=== PATIENT | female | born 1975 | race Caucasian/White ===

== ENCOUNTER 2017-04-13 06:20 | Emergency (ER) | payer MEDICAID ==
--- NOTE | 2017-04-13 07:24 | EDM.PDOC ---
ED HPI GENERAL MEDICAL PROBLEM - General Stated Complaint: MEDICAL VIA NORTH Time Seen by Provider: 04/13/17 07:10 Source of Information: Reports: Patient, EMS - History of Present Illness INITIAL COMMENTS - FREE TEXT/NARRATIVE: 41-year-old female brought in by ambulance in an acutely anxious state thinking she is dehydrated, septic, and several other complaints that are really not realistic. She is on several psychiatric medications, her alprazolam and Vyvanse both appear to be empty despite being 1 week to 2 weeks before they were supposed to be gone. She has some superficial abrasions on her face. Onset: Unknown/Unsure Severity: Mild Associated Symptoms: Reports: Loss of Appetite, Malaise. Denies: Fever/Chills, Nausea/Vomiting, Shortness of Breath Feet Pain Score (Numeric/FACES): 6 - Related Data Allergies Allergy/AdvReac Type Severity Reaction Status Date / Time Penicillins Allergy Hives Verified 04/13/17 07:25 Home Meds: Home Meds LORazepam 1.5 tab PO TID PRN 12/23/14 [History] Temazepam 30 mg PO BEDTIME PRN 12/23/14 [History] tiZANidine [Zanaflex] 4 mg PO QID PRN 02/24/15 [History] Gabapentin [Neurontin] 1 tab PO TID 04/13/17 [History] Lisdexamfetamine [Vyvanse] 1 cap PO DAILY 04/13/17 [History] Lurasidone HCl [Latuda] 20 mg PO DAILY 04/13/17 [History] Melatonin/Pyridoxine HCl (B6) [Melatonin 3 mg Tablet] 1 tab PO ASDIRECTED [History] Naproxen 1 tab PO BID 04/13/17 [History] Aime/Polymyx B Sulf/Dexameth [Euedep-Ordve-Axpzawkp Eye Drop] 1 drop EYEBOTH ASDIRECTED 04/13/17 [History] SUMAtriptan [Imitrex] 1 tab PO ASDIRECTED 04/13/17 [History] Vilazodone [Viibryd] 1 tab PO DAILY 04/13/17 [History] metroNIDAZOLE [Metronidazole] 1 tab PO BID 04/13/17 [History] Past Medical History HEENT History: Reports: Impaired Vision Respiratory History: Reports: Asthma, Bronchitis, Recurrent, Pneumonia, Recurrent Gastrointestinal History: Reports: Chronic Diarrhea, Irritable Bowel Syndrome 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: 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 OB/BYN History: states had "internal and external" ultrasound 2 months ago , found thickening of uterine wall Musculoskeletal History: Reports: Arthritis, Back Pain, Chronic, Fibromyalgia Neurological History: Reports: Migraines Psychiatric History: Reports: Anxiety, Bipolar, Depression, Psych Hospitalization(s), Suicide Attempt Endocrine/Metabolic History: Reports: Obesity/BMI 30+ - Infectious Disease History Infectious Disease History: Reports: Chicken Pox - Past Surgical History Respiratory Surgical History: Reports: Other (See Below) Female Surgical History: Reports: Section, Other (See Below) Social & Family History - Tobacco Use Smoking Status *Q: Light Tobacco Smoker Years of Tobacco use: 25 Packs/Tins Daily: 0.5 Used Tobacco, but Quit: No Month Tobacco Last Used: october Second Hand Smoke Exposure: Yes - Alcohol Use Days Per Week of Alcohol Use: 1 Number of Drinks Per Day: 2 Total Drinks Per Week: 2 - Recreational Drug Use Recreational Drug Use: No Drug Use in Last 12 Months: Yes Recreational Drug Type: Reports: Marijuana/Hashish Recreational Drug Use Frequency: Monthly Recreational Drug Last Use: 1 week - Living Situation & Occupation Living situation: Reports: Single Occupation: Employed ED ROS GENERAL - Review of Systems Review Of Systems: See Below Constitutional: Reports: Malaise. Denies: Fever, Chills Respiratory: Denies: Shortness of Breath Cardiovascular: Denies: Chest Pain GI/Abdominal: Reports: Decreased Appetite, Nausea : Reports: No Symptoms Musculoskeletal: Reports: Other (Complains of toe pain) Skin: Reports: Other (Superficial excoriations and abrasions on her face) ED EXAM, GENERAL - Physical Exam Exam: See Below Exam Limited By: No Limitations General Appearance: Alert, Anxious Eye Exam: Bilateral Eye: Normal Inspection Respiratory/Chest: No Respiratory Distress, Lungs Clear Cardiovascular: Regular Rate, Rhythm GI/Abdominal: Non-Tender Extremities: Other (Exam of the lower extremities is normal including the feet) Neurological: Alert Psychiatric: Anxious Skin Exam: Warm, Dry, Other (Patient does have several superficial erythematous abrasions on the forehead and face) Course - Vital Signs Last Recorded V/S: Last Vital Signs Temp 98.2 F 04/13/17 07:00 Pulse 66 04/13/17 07:30 Resp 16 04/13/17 07:30 BP 138/87 04/13/17 07:30 Pulse Ox 96 04/13/17 07:30 - Orders/Labs/Meds Labs: Laboratory Tests 04/13/17 04/13/17 04/13/17 Range/Units 07:35 07:35 08:04 WBC 8.3 (4.5-11.0) K/uL RBC 4.23 (3.30-5.50) M/uL Hgb 12.5 (12.0-15.0) g/dL Hct 38.2 (36.0-48.0) % MCV 90 (80-98) fL MCH 30 (27-31) pg MCHC 33 (32-36) % Plt Count 281 (150-400) K/uL Neut % (Auto) 63 (36-66) % Lymph % (Auto) 26 (24-44) % Brantley % (Auto) 7 H (2-6) % Eos % (Auto) 4 (2-4) % Baso % (Auto) 0 (0-1) % Sodium 145 (140-148) mmol/L Potassium 3.4 L (3.6-5.2) mmol/L Chloride 110 H (100-108) mmol/L Carbon Dioxide 26 (21-32) mmol/L Anion Gap 12.4 (5.0-14.0) mmol/L BUN 11 (7-18) mg/dL Creatinine 0.7 (0.6-1.0) mg/dL Est Cr Clr Drug Dosing 97.01 mL/min Estimated GFR (MDRD) > 60 (>60) Glucose 94 (74-106) mg/dL Calcium 8.1 L (8.5-10.1) mg/dL Urine Color Urine Appearance Urine pH (4.5-8.0) Ur Specific Felton (1.008-1.030) Urine Protein (NEGATIVE) mg/dL Urine Glucose (UA) (NEGATIVE) mg/dL Urine Ketones (NEGATIVE) mg/dL Urine Occult Blood (NEGATIVE) Urine Nitrite (NEGATIVE) Urine Bilirubin (NEGATIVE) Urine Urobilinogen (NORMAL) mg/dL Ur Leukocyte Esterase (NEGATIVE) Urine RBC (0-5) Urine WBC (0-5) Ur Epithelial Cells Amorphous Sediment Urine Bacteria Urine Mucus Urine Opiates Screen Negative (NEGATIVE) Ur Oxycodone Screen Negative (NEGATIVE) Urine Methadone Screen Negative (NEGATIVE) Ur Propoxyphene Screen Negative (NEGATIVE) Ur Barbiturates Screen Negative (NEGATIVE) Ur Tricyclics Screen Negative (NEGATIVE) Ur Phencyclidine Scrn Negative (NEGATIVE) Ur Amphetamine Screen Positive H (NEGATIVE) U Methamphetamines Scrn Negative (NEGATIVE) Urine MDMA Screen Negative (NEGATIVE) U Benzodiazepines Scrn Positive H (NEGATIVE) U Cocaine Metab Screen Negative (NEGATIVE) U Marijuana (THC) Screen Negative (NEGATIVE) 04/13/17 Range/Units 08:04 WBC (4.5-11.0) K/uL RBC (3.30-5.50) M/uL Hgb (12.0-15.0) g/dL Hct (36.0-48.0) % MCV (80-98) fL MCH (27-31) pg MCHC (32-36) % Plt Count (150-400) K/uL Neut % (Auto) (36-66) % Lymph % (Auto) (24-44) % Brantley % (Auto) (2-6) % Eos % (Auto) (2-4) % Baso % (Auto) (0-1) % Sodium (140-148) mmol/L Potassium (3.6-5.2) mmol/L Chloride (100-108) mmol/L Carbon Dioxide (21-32) mmol/L Anion Gap (5.0-14.0) mmol/L BUN (7-18) mg/dL Creatinine (0.6-1.0) mg/dL Est Cr Clr Drug Dosing mL/min Estimated GFR (MDRD) (>60) Glucose (74-106) mg/dL Calcium (8.5-10.1) mg/dL Urine Color Yellow Urine Appearance Clear Urine pH 7.0 (4.5-8.0) Ur Specific Felton 1.015 (1.008-1.030) Urine Protein Negative (NEGATIVE) mg/dL Urine Glucose (UA) Normal (NEGATIVE) mg/dL Urine Ketones Negative (NEGATIVE) mg/dL Urine Occult Blood Negative (NEGATIVE) Urine Nitrite Negative (NEGATIVE) Urine Bilirubin Negative (NEGATIVE) Urine Urobilinogen Normal (NORMAL) mg/dL Ur Leukocyte Esterase Negative (NEGATIVE) Urine RBC 0-5 (0-5) Urine WBC 0-5 (0-5) Ur Epithelial Cells Few Amorphous Sediment Not seen Urine Bacteria Few Urine Mucus Not seen Urine Opiates Screen (NEGATIVE) Ur Oxycodone Screen (NEGATIVE) Urine Methadone Screen (NEGATIVE) Ur Propoxyphene Screen (NEGATIVE) Ur Barbiturates Screen (NEGATIVE) Ur Tricyclics Screen (NEGATIVE) Ur Phencyclidine Scrn (NEGATIVE) Ur Amphetamine Screen (NEGATIVE) U Methamphetamines Scrn (NEGATIVE) Urine MDMA Screen (NEGATIVE) U Benzodiazepines Scrn (NEGATIVE) U Cocaine Metab Screen (NEGATIVE) U Marijuana (THC) Screen (NEGATIVE) - Re-Assessments/Exams Free Text/Narrative Re-Assessment/Exam: 04/13/17 08:46 CBC and CMP were obtained which are generally normal. Urine tox screen was positive for amphetamines and benzodiazepines which are prescribed to the patient. When I asked her why she was out of her medications early she said that her "cat is knocking them over on her table". She needs to schedule an appointment in the near future to discuss her medications with her primary care physician. I reassured her that she is not significantly physically ill. Departure - Departure Time of Disposition: 09:30 Disposition: Home, Self-Care 01 Condition: Good Clinical Impression: Anxiety about health, Rash of face - Discharge Information Instructions: Panic Attacks, [id number] Referrals: PCP,None [Primary Care Provider] - Forms: ED Department Discharge Care Plan Goals: See your primary provider as soon as possible to discuss your medications. Continue to stay hydrated.
[2017-04-13 07:31] VITALS: BP 138/87
== END 2017-04-13 09:30 | disposition home or self-care (01) ==
LOC: JP.ED 06:20
DX: F41.9 Anxiety disorder, unspecified (principal); R21 Rash and other nonspecific skin eruption; F17.210 Nicotine dependence, cigarettes, uncomplicated; F31.9 Bipolar disorder, unspecified; J45.909 Unspecified asthma, uncomplicated; Z79.899 Other long term (current) drug therapy; Z88.0 Allergy status to penicillin
CPT/HCPCS: 36415; 80048; 80305; 81001; 85025; 99284

== ENCOUNTER 2017-04-16 14:49 | Emergency (ER) | payer MEDICAID ==
[2017-04-16 15:03] VITALS: BP 135/84
--- NOTE | 2017-04-16 15:32 | EDM.PDOCBH ---
ED HPI GENERAL MEDICAL PROBLEM - General Chief Complaint: Drug or Alcohol Abuse Stated Complaint: DETOXING/DEHYDRATED Time Seen by Provider: 04/16/17 15:25 Source of Information: Reports: Patient History Limitations: Reports: No Limitations - History of Present Illness INITIAL COMMENTS - FREE TEXT/NARRATIVE: pt is detoxing off some of her meds. She was at [facility] last nite but was not comfortable there. Onset: Gradual, Other ( Pt has been dealing with problems for a number of days. ) Duration: Day(s): Location: Reports: Generalized Severity: Moderate Associated Symptoms: Reports: Loss of Appetite, Shortness of Breath, Weakness Generalized Pain Score (Numeric/FACES): 5 - Related Data Allergies Allergy/AdvReac Type Severity Reaction Status Date / Time Penicillins Allergy Hives Verified 04/17/17 03:35 Home Meds: Home Meds FLUoxetine [PROzac] 20 mg PO DAILY cap 04/18/17 [Rx] Gabapentin [Neurontin] 300 mg PO BID cap 04/18/17 [Rx] Nicotine [Habitrol] 7 mg TRDERM DAILY patch 04/18/17 [Rx] QUEtiapine [SEROquel] 50 mg PO TID PRN tablet 04/18/17 [Rx] QUEtiapine [SEROquel] 150 mg PO BEDTIME tablet 04/18/17 [Rx] QUEtiapine [SEROquel] 150 mg PO BEDTIME tablet 04/18/17 [Rx] Past Medical History HEENT History: Reports: Impaired Vision Respiratory History: Reports: Asthma, Bronchitis, Recurrent, Pneumonia, Recurrent Gastrointestinal History: Reports: Chronic Diarrhea, Irritable Bowel Syndrome 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 OB/BYN History: states had "internal and external" ultrasound 2 months ago , found thickening of uterine wall Musculoskeletal History: Reports: Arthritis, Back Pain, Chronic, Fibromyalgia Neurological History: Reports: Migraines Psychiatric History: Reports: Anxiety, Bipolar, Depression, Psych Hospitalization(s), Suicide Attempt Endocrine/Metabolic History: Reports: Obesity/BMI 30+ - Infectious Disease History Infectious Disease History: Reports: Chicken Pox - Past Surgical History Respiratory Surgical History: Reports: Other (See Below) Female Surgical History: Reports: Section, Other (See Below) Social & Family History - Tobacco Use Smoking Status *Q: Current Every Day Smoker Years of Tobacco use: 30 Packs/Tins Daily: 0.5 Used Tobacco, but Quit: No Month Tobacco Last Used: october Second Hand Smoke Exposure: Yes - Caffeine Use Caffeine Use: Reports: Coffee - Alcohol Use Days Per Week of Alcohol Use: 1 Number of Drinks Per Day: 2 Total Drinks Per Week: 2 - Recreational Drug Use Recreational Drug Use: No Drug Use in Last 12 Months: Yes Recreational Drug Type: Reports: Marijuana/Hashish Recreational Drug Use Frequency: Monthly Recreational Drug Last Use: 1 week - Living Situation & Occupation Living situation: Reports: Single Occupation: Employed ED ROS GENERAL - Review of Systems Review Of Systems: See Below Constitutional: Reports: No Symptoms HEENT: Reports: No Symptoms Respiratory: Reports: No Symptoms Cardiovascular: Reports: No Symptoms Endocrine: Reports: No Symptoms GI/Abdominal: Reports: No Symptoms : Reports: No Symptoms Musculoskeletal: Reports: No Symptoms Skin: Reports: No Symptoms Neurological: Reports: Other (pt states she is detoxing from drugs. She has taken 1200 mg of gabapentin today and she coulkdn, remember what else. ) ED EXAM, BEHAVIORAL HEALTH - Physical Exam Exam: See Below Text/Narrative:: pt is here very agitated and is stating that she is detoxing from drugs She admits to over using her vyvance during the time she was helping her mother. Exam Limited By: No Limitations General Appearance: Alert, Anxious, Other (ptis very agitated. pupils are equal nd reactive. ) Ears: Normal TMs Nose: Normal Inspection Throat/Mouth: Normal Inspection Head: Atraumatic Neck: Normal Inspection Respiratory/Chest: No Respiratory Distress Cardiovascular: Regular Rate, Rhythm GI/Abdominal: Soft, Non-Tender (Female) Exam: Deferred Rectal (Female) Exam: Deferred Back Exam: Normal Inspection Extremities: Normal Inspection Neurological: Alert, Normal Cognition Psychiatric: Alert, Normal Affect, Normal Cognition COURSE, BEHAVIORAL HEALTH COMP - Course Vital Signs: Last Vital Signs Temp 37.1 C 04/16/17 15:00 Pulse 80 04/16/17 15:00 Resp 18 04/16/17 15:00 BP 135/84 04/16/17 15:00 Pulse Ox 97 04/16/17 15:00 Orders, Labs, Meds: Laboratory Tests 04/16/17 04/16/17 04/16/17 Range/Units 15:37 15:37 15:37 WBC 9.6 (4.5-11.0) K/uL RBC 4.79 (3.30-5.50) M/uL Hgb 14.4 (12.0-15.0) g/dL Hct 42.7 (36.0-48.0) % MCV 89 (80-98) fL MCH 30 (27-31) pg MCHC 34 (32-36) % Plt Count 322 (150-400) K/uL Neut % (Auto) 66 (36-66) % Lymph % (Auto) 23 L (24-44) % Wake % (Auto) 7 H (2-6) % Eos % (Auto) 2 (2-4) % Baso % (Auto) 1 (0-1) % Sodium 141 (140-148) mmol/L Potassium 3.9 (3.6-5.2) mmol/L Chloride 108 (100-108) mmol/L Carbon Dioxide 25 (21-32) mmol/L Anion Gap 8.2 (5.0-14.0) mmol/L BUN 8 (7-18) mg/dL Creatinine 0.8 (0.6-1.0) mg/dL Est Cr Clr Drug Dosing 84.88 mL/min Estimated GFR (MDRD) > 60 (>60) Glucose 90 (74-106) mg/dL Calcium 8.6 (8.5-10.1) mg/dL Total Bilirubin 0.6 D (0.2-1.0) mg/dL AST 17 (15-37) U/L ALT 31 (12-78) U/L Alkaline Phosphatase 49 (46-116) U/L Total Protein 6.6 (6.4-8.2) g/dL Albumin 3.6 (3.4-5.0) g/dL Globulin 3.0 (2.3-3.5) g/dL Albumin/Globulin Ratio 1.2 (1.2-2.2) Urine Color Urine Appearance Urine pH (4.5-8.0) Ur Specific Fitzgerald (1.008-1.030) Urine Protein (NEGATIVE) mg/dL Urine Glucose (UA) (NEGATIVE) mg/dL Urine Ketones (NEGATIVE) mg/dL Urine Occult Blood (NEGATIVE) Urine Nitrite (NEGATIVE) Urine Bilirubin (NEGATIVE) Urine Urobilinogen (NORMAL) mg/dL Ur Leukocyte Esterase (NEGATIVE) Urine RBC (0-5) Urine WBC (0-5) Ur Epithelial Cells Amorphous Sediment Urine Bacteria Urine Mucus Urine Opiates Screen (NEGATIVE) Ur Oxycodone Screen (NEGATIVE) Urine Methadone Screen (NEGATIVE) Ur Propoxyphene Screen (NEGATIVE) Ur Barbiturates Screen (NEGATIVE) Ur Tricyclics Screen (NEGATIVE) Ur Phencyclidine Scrn (NEGATIVE) Ur Amphetamine Screen (NEGATIVE) U Methamphetamines Scrn (NEGATIVE) Urine MDMA Screen (NEGATIVE) U Benzodiazepines Scrn (NEGATIVE) U Cocaine Metab Screen (NEGATIVE) U Marijuana (THC) Screen (NEGATIVE) Ethyl Alcohol < 3 mg/dL 04/16/17 04/16/17 Range/Units 15:58 15:58 WBC (4.5-11.0) K/uL RBC (3.30-5.50) M/uL Hgb (12.0-15.0) g/dL Hct (36.0-48.0) % MCV (80-98) fL MCH (27-31) pg MCHC (32-36) % Plt Count (150-400) K/uL Neut % (Auto) (36-66) % Lymph % (Auto) (24-44) % Wake % (Auto) (2-6) % Eos % (Auto) (2-4) % Baso % (Auto) (0-1) % Sodium (140-148) mmol/L Potassium (3.6-5.2) mmol/L Chloride (100-108) mmol/L Carbon Dioxide (21-32) mmol/L Anion Gap (5.0-14.0) mmol/L BUN (7-18) mg/dL Creatinine (0.6-1.0) mg/dL Est Cr Clr Drug Dosing mL/min Estimated GFR (MDRD) (>60) Glucose (74-106) mg/dL Calcium (8.5-10.1) mg/dL Total Bilirubin (0.2-1.0) mg/dL AST (15-37) U/L ALT (12-78) U/L Alkaline Phosphatase (46-116) U/L Total Protein (6.4-8.2) g/dL Albumin (3.4-5.0) g/dL Globulin (2.3-3.5) g/dL Albumin/Globulin Ratio (1.2-2.2) Urine Color Yellow Urine Appearance Clear Urine pH 8.0 (4.5-8.0) Ur Specific Fitzgerald 1.015 (1.008-1.030) Urine Protein Negative (NEGATIVE) mg/dL Urine Glucose (UA) Normal (NEGATIVE) mg/dL Urine Ketones Negative (NEGATIVE) mg/dL Urine Occult Blood Negative (NEGATIVE) Urine Nitrite Negative (NEGATIVE) Urine Bilirubin Negative (NEGATIVE) Urine Urobilinogen Normal (NORMAL) mg/dL Ur Leukocyte Esterase Negative (NEGATIVE) Urine RBC Not seen (0-5) Urine WBC 0-5 (0-5) Ur Epithelial Cells Few Amorphous Sediment Not seen Urine Bacteria Few Urine Mucus Not seen Urine Opiates Screen Negative (NEGATIVE) Ur Oxycodone Screen Negative (NEGATIVE) Urine Methadone Screen Negative (NEGATIVE) Ur Propoxyphene Screen Negative (NEGATIVE) Ur Barbiturates Screen Negative (NEGATIVE) Ur Tricyclics Screen Negative (NEGATIVE) Ur Phencyclidine Scrn Negative (NEGATIVE) Ur Amphetamine Screen Negative (NEGATIVE) U Methamphetamines Scrn Negative (NEGATIVE) Urine MDMA Screen Negative (NEGATIVE) U Benzodiazepines Scrn Positive H (NEGATIVE) U Cocaine Metab Screen Negative (NEGATIVE) U Marijuana (THC) Screen Negative (NEGATIVE) Ethyl Alcohol mg/dL Medications Discontinued Medications Generic Name Dose Route Start Last Admin Trade Name Freq PRN Reason Stop Dose Admin Diphenhydramine HCl 50 mg 04/16/17 17:08 04/16/17 17:30 Benadryl PO 04/16/17 17:09 50 mg ONETIME ONE Administration Diphenhydramine HCl Confirm 04/16/17 17:33 Benadryl Administered 04/16/17 17:34 Dose 25 mg .ROUTE .STK-MED ONE Sodium Chloride 1,000 mls @ 400 mls/hr 04/16/17 15:45 04/16/17 16:21 Normal Saline IV 400 mls/hr ASDIRECTED OC Administration Sodium Chloride 1,000 mls @ 999 mls/hr 04/16/17 16:45 Normal Saline IV ASDIRECTED OC Medical Clearance: 04/16/17 16:39 lab work looks good. Her drug screen is positive for benzodiapines. Departure - Departure Time of Disposition: 15:00 Disposition: Eloped 07 Condition: Fair Clinical Impression: Adverse drug interaction, Dehydration - Discharge Information Referrals: PCP,None [Primary Care Provider] - Forms: ED Department Discharge Care Plan Goals: pt navarro
[2017-04-16] MEDS ORDERED: Sodium Chloride 0.9% 1,000 ML IV SCH ×2 (15:45→16:45)
[2017-04-16] MEDS ORDERED: diphenhydrAMINE 25 MG Cap PO ONE (17:08)
[2017-04-16] MEDS ORDERED: diphenhydrAMINE 25 MG Cap ONE (17:33)
--- NOTE | 2017-04-17 09:08 | CR ---
Heart size within normal limits. Right lung is clear. Faint density left upper lobe. Radiographic fol low-up. Difficult to exclude developing pneumonitis.
== END 2017-04-16 18:25 | disposition left against medical advice (07) ==
LOC: JP.ED 14:49
DX: E86.0 Dehydration (principal); T50.905A Adverse effect of unspecified drugs, medicaments and biological substances, initial encounter; F17.210 Nicotine dependence, cigarettes, uncomplicated; Z79.899 Other long term (current) drug therapy; Z88.0 Allergy status to penicillin
CPT/HCPCS: 36415; 71010; 80053; 80305; 81001; 85025; 96360; 96361; 99285; A9270; G0480; J7040

== ENCOUNTER 2017-04-17 03:24 | Observation (INO) | payer MEDICAID ==
--- NOTE | 2017-04-17 04:14 | EDM.PDOC ---
ED HPI GENERAL MEDICAL PROBLEM - General Chief Complaint: Allergic Reaction Stated Complaint: MEDICAL VIA NORTH Time Seen by Provider: 04/17/17 03:34 Source of Information: Reports: Patient History Limitations: Reports: No Limitations - History of Present Illness INITIAL COMMENTS - FREE TEXT/NARRATIVE: 41 year old female brought in by ambulance with concerns of possible allergic reaction. Had been seen earlier last PM for symptoms related to benzodiazapine use and was recommended to be admitted for detox and control of her symptoms. labwork and chest x-ray had been basically normal. Prior to last week was taking ativan 3 times daily with temazapam 30 mg at bedtime. She ran out of meds one week ago, and had withdrawal symptoms . She was in detox this week but left and did agree to treatment, she felt that they were not attending her needs. Tonite with increased anxiety, feeling short of breath with skin crawling sensation, nausea and no vomiting. 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) (was in detox until 2 days ago) toes bilateral feet Pain Score (Numeric/FACES): 8 - Related Data Allergies Allergy/AdvReac Type Severity Reaction Status Date / Time Penicillins Allergy Hives Verified 04/17/17 03:35 Home Meds: Home Meds LORazepam 1.5 tab PO TID PRN 12/23/14 [History] Temazepam 30 mg PO BEDTIME PRN 12/23/14 [History] tiZANidine [Zanaflex] 4 mg PO QID PRN 02/24/15 [History] Gabapentin [Neurontin] 1 tab PO TID 04/13/17 [History] Lisdexamfetamine [Vyvanse] 1 cap PO DAILY 04/13/17 [History] Lurasidone HCl [Latuda] 20 mg PO DAILY 04/13/17 [History] Melatonin/Pyridoxine HCl (B6) [Melatonin 3 mg Tablet] 1 tab PO ASDIRECTED [History] Naproxen 1 tab PO BID 04/13/17 [History] SUMAtriptan [Imitrex] 1 tab PO ASDIRECTED 04/13/17 [History] Vilazodone [Viibryd] 1 tab PO DAILY 04/13/17 [History] Past Medical History HEENT History: Reports: Impaired Vision Respiratory History: Reports: Asthma, Bronchitis, Recurrent, Pneumonia, Recurrent Gastrointestinal History: Reports: Chronic Diarrhea, Irritable Bowel Syndrome 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/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 History: states had "internal and external" ultrasound 2 months ago , found thickening of uterine wall Musculoskeletal History: Reports: Arthritis, Back Pain, Chronic, Fibromyalgia Neurological History: Reports: Migraines Psychiatric History: Reports: Anxiety, Bipolar, Depression, Psych Hospitalization(s), Suicide Attempt Endocrine/Metabolic History: Reports: Obesity/BMI 30+ - Infectious Disease History Infectious Disease History: Reports: Chicken Pox - Past Surgical History Respiratory Surgical History: Reports: Other (See Below) Female Surgical History: Reports: Section, Other (See Below) Social & Family History - Tobacco Use Smoking Status *Q: Current Every Day Smoker Years of Tobacco use: 30 Packs/Tins Daily: 0.5 Used Tobacco, but Quit: No Month Tobacco Last Used: october Second Hand Smoke Exposure: Yes - Caffeine Use Caffeine Use: Reports: Coffee, Soda - Alcohol Use Days Per Week of Alcohol Use: 1 Number of Drinks Per Day: 2 Total Drinks Per Week: 2 - Recreational Drug Use Recreational Drug Use: Yes Drug Use in Last 12 Months: Yes Recreational Drug Type: Reports: Marijuana/Hashish Recreational Drug Use Frequency: Rarely Recreational Drug Last Use: 1 week - Living Situation & Occupation Living situation: Reports: Single Occupation: Employed ED ROS ALLERGIC REACTION - Review of Systems Review Of Systems: See Below Constitutional: Reports: Malaise, Weakness, Diaphoresis, Decreased Appetite HEENT: Reports: No Symptoms Respiratory: Reports: Shortness of Breath. Denies: Cough, Sputum Cardiovascular: Reports: Lightheadedness. Denies: Chest Pain, Dyspnea on Exertion GI/Abdominal: Reports: Anorexia, Decreased Appetite, Nausea. Denies: Vomiting : Reports: No Symptoms Musculoskeletal: Reports: Muscle Pain Neurological: Reports: Dizziness, Headache, Tingling, Weakness Psychiatric: Reports: Anxiety, Confusion, Mood Lability Immunologic: Reports: No Symptoms ED EXAM GENERAL NO PERIP PULSE - Physical Exam Exam: See Below Exam Limited By: No Limitations General Appearance: Alert, Mild Distress Ears: Normal External Exam Nose: Normal Inspection Throat/Mouth: Normal Inspection, Normal Lips, Normal Teeth, Normal Oropharynx, Normal Voice Head: Atraumatic, Normocephalic Neck: Normal Inspection, Supple, Non-Tender, Full Range of Motion Respiratory/Chest: No Respiratory Distress, Lungs Clear, Normal Breath Sounds Cardiovascular: Normal Peripheral Pulses, Regular Rate, Rhythm, No Edema GI/Abdominal: Normal Bowel Sounds, Soft Neurological: Alert, Oriented Psychiatric: Anxious, Tearful Skin Exam: Warm Lymphatic: No Adenopathy Course - Vital Signs Last Recorded V/S: Last Vital Signs Temp 37.1 C 04/17/17 03:35 Pulse 82 04/17/17 03:35 Resp 18 04/17/17 03:35 BP 111/72 04/17/17 03:35 Pulse Ox 98 04/17/17 03:35 Departure - Departure Time of Disposition: 04:17 Disposition: Refer to Observation Clinical Impression: Withdrawal from benzodiazepine - Discharge Information Referrals: PCP,None [Primary Care Provider] - - Assessment/Plan Assessment:: 41 year old female who returns to ED after leaving yesterday PM, AMA before being admitted. She is experiencing symptoms of benzodiazapine withdrawal with mild confusion, anxiety, skin sensation, nausea. At this point she is willing to be admitted, her case was discussed with Dr. Sarath Peck who will accept her for admission
[2017-04-17] MEDS ORDERED: Diazepam 5 MG Tab PO ONE (04:17)
--- NOTE | 2017-04-17 08:13 | PCM.HP ---
H&P History of Present Illness - General Date of Service: 04/17/17 Admit Problem/Dx: Admission Diagnosis/Problem Admission Diagnosis/Problem Drug withdrawal Source of Information: Patient History Limitations: Reports: No Limitations - History of Present Illness Initial Comments - Free Text/Narative: Krys is a 41 year old female who recently stopped all her drugs including Latuda , previously on Seroquel, also stopped vyvanse, viibryd, Temazepam, Lorazepam. She has been having anxiety and lucio. She has a history of bipolar disorder, depression, anxiety and insomnia. She has stopped all medicine 1 week ago except viibryd and gabapentin. Onset of Symptoms: Reports: Sudden toes bilateral feet Pain Score (Numeric/FACES): 8 - Related Data Allergies/Adverse Reactions: Allergies Allergy/AdvReac Type Severity Reaction Status Date / Time Penicillins Allergy Hives Verified 04/17/17 03:35 Home Medications: Home Meds LORazepam 1.5 tab PO TID PRN 12/23/14 [History] Temazepam 30 mg PO BEDTIME PRN 12/23/14 [History] tiZANidine [Zanaflex] 0.25 mg PO BEDTIME PRN 02/24/15 [History] Gabapentin [Neurontin] 400 mg PO TID 04/13/17 [History] Naproxen 500 mg PO BID 04/13/17 [History] Vilazodone [Viibryd] 40 mg PO BEDTIME 04/13/17 [History] Past Medical History HEENT History: Reports: Impaired Vision Respiratory History: Reports: Asthma, Bronchitis, Recurrent, Pneumonia, Recurrent Gastrointestinal History: Reports: Chronic Diarrhea, Irritable Bowel Syndrome 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: Other OB/BYN History: states had "internal and external" ultrasound 2 months ago , found thickening of uterine wall Musculoskeletal History: Reports: Arthritis, Back Pain, Chronic, Fibromyalgia Neurological History: Reports: Migraines Psychiatric History: Reports: Anxiety, Bipolar, Depression, Psych Hospitalization(s), Suicide Attempt Endocrine/Metabolic History: Reports: Obesity/BMI 30+ - Infectious Disease History Infectious Disease History: Reports: Chicken Pox - Past Surgical History Female Surgical History: Reports: Section Social & Family History - Tobacco Use Smoking Status *Q: Current Every Day Smoker Years of Tobacco use: 27 Packs/Tins Daily: 0.5 Used Tobacco, but Quit: No Month Tobacco Last Used: may Second Hand Smoke Exposure: No - Caffeine Use Caffeine Use: Reports: Coffee, Soda, Tea Other Caffeine Use: minimal coffee, soda, and tea - Alcohol Use Days Per Week of Alcohol Use: 1 Number of Drinks Per Day: 2 Total Drinks Per Week: 2 - Recreational Drug Use Recreational Drug Use: Yes Drug Use in Last 12 Months: Yes Recreational Drug Type: Reports: Marijuana/Hashish Recreational Drug Use Frequency: Weekly Recreational Drug Last Use: 1 week - Living Situation & Occupation Living situation: Reports: Single Occupation: Employed H&P Review of Systems - Review of Systems: Review Of Systems: See Below General: Reports: Fever, Weakness, Fatigue, Night Sweats HEENT: Reports: Dysphasia, Ear Pain, Eye Pain, Headaches, Hearing Changes, Vertigo, Visual Changes Pulmonary: Reports: Shortness of Breath, Cough Cardiovascular: Reports: Chest Pain, Palpitations, Dyspnea on Exertion Genitourinary: Reports: No Symptoms Musculoskeletal: Reports: Joint Pain, Muscle Pain Skin: Reports: No Symptoms Psychiatric: Reports: Confusion, Mood Lability, Anxiety, Agitation Neurological: Reports: Headache, Weakness Hematologic/Lymphatic: Reports: Easy Bruising Exam - Exam Exam: See Below - Vital Signs Vital Signs: Last Vital Signs Temp 100.5 F 04/17/17 07:00 Pulse 98 04/17/17 07:00 Resp 18 04/17/17 07:00 BP 111/71 04/17/17 07:00 Pulse Ox 98 04/17/17 07:00 Weight: 184 lb - Exam General: Alert, Oriented, Cooperative, Moderate Distress HEENT: PERRLA, EACs Clear, Hearing Intact Neck: Supple, Full Range of Motion Lungs: Clear to Auscultation, Normal Respiratory Effort Cardiovascular: Regular Rate, Regular Rhythm GI/Abdominal Exam: Normal Bowel Sounds, Soft Extremities: Normal Inspection Peripheral Pulses: 1+: Radial (L), Radial (R) Skin: Warm, Dry, Intact Neurological: Cranial Nerves Intact, Reflexes Equal Bilateral, Strength Equal Bilateral Neuro Extensive - Mental Status: Alert, Oriented x3, Normal Cognition, Memory Intact Neuro Extensive - Motor, Sensory, Reflexes: CN II-XII Intact DTR: 1+: Bicep (L), Bicep (R) Psychiatric: Alert, Labile Mood, Anxious *Q Meaningful Use (ADM) - VTE *Q VTE Criteria *Q: - Stroke *Q Stroke Criteria *Q: - AMI *Q AMI Criteria *Q: Problem List Initiated/Reviewed/Updated: Yes Orders Last 24hrs: Active Orders 24 hr Category Date Time Status Patient Status [ADT] Routine ADT 04/17/17 08:00 Ordered Intake and Output [RC] QSHIFT Care 04/17/17 08:02 Ordered Oxygen Therapy [RC] PRN Care 04/17/17 08:00 Ordered VTE/DVT Education [RC] Per Unit Routine Care 04/17/17 08:00 Ordered Vital Signs [RC] Q4H Care 04/17/17 08:00 Ordered Regular Diet [DIET] Diet 04/17/17 Breakfast Active FLUoxetine [PROzac] Med 04/17/17 08:15 Ordered 20 mg PO DAILY Pneumococcal Polyvalent-23 Vac [Pneumovax 23] Med 04/17/17 12:00 Once 0.5 ml IM .ONCE ONE QUEtiapine [SEROquel] Med 04/17/17 21:00 Ordered 150 mg PO BEDTIME QUEtiapine [SEROquel] Med 04/17/17 08:04 Ordered 50 mg PO TID PRN Quetiapine [Seroquel] Med 04/17/17 21:00 Active 150 mg PO BEDTIME Resuscitation Status Routine Resus Stat 04/17/17 07:46 Ordered Medication Orders Pneumococcal Polyvalent Vaccine (Pneumovax 23) 0.5 ml IM .ONCE ONE Stop: 04/17/17 12:01 Quetiapine Fumarate (Seroquel) 150 mg PO BEDTIME OC Quetiapine Fumarate (Seroquel) 50 mg PO TID PRN PRN Reason: Anxiety Quetiapine Fumarate 100 mg/ (Quetiapine Fumarate 50 mg) 150 mg PO BEDTIME OC Assessment/Plan Comment:: Assessment/Plan: #1. Bipolar disorder: Miriam put her baack on Seroquel 150mg at h.s. and 50 mg as needed during the dday. #2. Depression: Stable on Viibryd will start Prozac instead. #3. Insomnia: will treat this with Seroquel not Temazepam. #4. Anxiety: Meds as above. #5. Fibramyalgia and DDD. Controlled with Gabapentin and will continue.
[2017-04-17] MEDS: Gabapentin 300 MG Cap PO SCH ×3 (09:02→21:03)
[2017-04-17] MEDS: FLUoxetine 20 MG Cap PO SCH (09:02)
[2017-04-17] MEDS: Nicotine 7 MG/24 Hr Patch TRDERM SCH (09:06)
[2017-04-17] MEDS: QUEtiapine 25 MG Tab PO PRN ×2 (09:07→15:08)
[2017-04-17] MEDS ORDERED: Pneumococcal Polyvalent-23 Vaccine 0.5 ML SDV IM ONE (12:00)
[2017-04-17] MEDS ORDERED: QUEtiapine 100 MG, QUEtiapine 50 MG PO SCH ×2 (21:00)
[2017-04-17] MEDS ORDERED: QUEtiapine 100 MG Tab PO SCH (21:00)
--- NOTE | 2017-04-18 05:12 | PCM.DCSUM1 ---
Discharge Summary - Hospital Course HPI Initial Comments: She came in from home having a hard time controlling her emotions. She had been on anti-anxiety meds and was in the ER last night and went home AMA. She wants to get off her addicting medications. She was recently stopped her Seroquel and has not been doing well since. She was admitted as an observation patient. - Discharge Data Discharge Date: 04/18/17 Discharge Disposition: Home, Self-Care 01 Condition: Fair - Patient Summary/Data Consults: Consultations 04/17/17 08:39 Consult to Senior Gis Analyst [CONS] Routine Comment: Physician Instructions: Reason for Consult: home living situation Hospital Course: Her medicine was adjusted and she begin to feel better. She housing problem was resolved as she is moving back with her mother who just lost her to cancer. She will be taking Seroquel 159mg at night and 50 mg tid as needed. She will also taped off Gabapentin over time.. - Patient Instructions Diet: Heart Healthy Diet Activity: As Tolerated - Discharge Plan Home Medications: Home Meds FLUoxetine [PROzac] 20 mg PO DAILY cap 04/18/17 [Rx] Gabapentin [Neurontin] 300 mg PO BID cap 04/18/17 [Rx] Nicotine [Habitrol] 7 mg TRDERM DAILY patch 04/18/17 [Rx] QUEtiapine [SEROquel] 50 mg PO TID PRN tablet 04/18/17 [Rx] Forms: ED Department Discharge Referrals: PCP,None [Ordering Only Provider] - - General Info Date of Service: 04/18/17 Functional Status: Reports: Pain Controlled - Review of Systems General: Reports: Weakness HEENT: Reports: No Symptoms Pulmonary: Reports: No Symptoms Cardiovascular: Reports: No Symptoms Gastrointestinal: Reports: No Symptoms Genitourinary: Reports: No Symptoms Musculoskeletal: Reports: No Symptoms Skin: Reports: No Symptoms Neurological: Reports: No Symptoms Psychiatric: Reports: Anxiety - Patient Data Vitals - Most Recent: Last Vital Signs Temp 100.5 F 04/18/17 02:00 Pulse 101 H 04/18/17 02:00 Resp 16 04/18/17 02:00 BP 114/73 04/18/17 02:00 Pulse Ox 94 L 04/18/17 02:00 Weight - Most Recent: 184 lb I&O - Last 24 hours: Intake & Output 04/17/17 04/17/17 04/18/17 14:59 22:59 06:59 Intake Total 1440 600 Balance 1440 600 Med Orders - Current: Current Medications Fluoxetine HCl (Prozac) 20 mg PO DAILY [facility] Last Admin: 04/17/17 09:02 Dose: 20 mg Gabapentin (Neurontin) 300 mg PO TID [facility] Last Admin: 04/17/17 21:03 Dose: 300 mg Nicotine (Habitrol) 7 mg TRDERM DAILY [facility] Last Admin: 04/17/17 09:06 Dose: 7 mg Quetiapine Fumarate (Seroquel) 50 mg PO TID PRN PRN Reason: Anxiety Last Admin: 04/17/17 15:08 Dose: 50 mg Quetiapine Fumarate 100 mg/ (Quetiapine Fumarate 50 mg) 150 mg PO BEDTIME [facility] Last Admin: 04/17/17 21:02 Dose: 150 mg Discontinued Medications Diazepam (Valium.) 10 mg PO ONETIME ONE Stop: 04/17/17 04:18 Last Admin: 04/17/17 04:33 Dose: 10 mg Pneumococcal Polyvalent Vaccine (Pneumovax 23) 0.5 ml IM .ONCE ONE Stop: 04/17/17 12:01 Quetiapine Fumarate (Seroquel) 150 mg PO BEDTIME OC - Exam General: Reports: Alert, Oriented HEENT: Reports: Pupils Equal, Pupils Reactive, EOMI, Mucous Membr. Moist/[place] Neck: Reports: Supple Lungs: Reports: Clear to Auscultation, Normal Respiratory Effort Cardiovascular: Reports: Regular Rate, Regular Rhythm GI/Abdominal Exam: Normal Bowel Sounds, Soft, Non-Tender, No Organomegaly, No Distention, No Abnormal Bruit, No Mass, Pelvis Stable Back Exam: Reports: Vertebral Tenderness Skin: Reports: Warm Psy/Mental Status: Reports: Anxious *Q Meaningful Use (DIS) - VTE *Q VTE Criteria *Q: - Stroke *Q Stroke Criteria *Q: - AMI *Q AMI Criteria *Q:
--- NOTE | 2017-04-18 05:12 | PCM.PN ---
- General Info Date of Service: 04/18/17 Admission Dx/Problem (Free Text): Anxiety came in by ambulance as was unable to control her emotions. She was admitted from the ER. Functional Status: Reports: Pain Controlled - Review of Systems General: Reports: No Symptoms HEENT: Reports: No Symptoms Pulmonary: Reports: No Symptoms Cardiovascular: Reports: No Symptoms Gastrointestinal: Reports: No Symptoms Genitourinary: Reports: No Symptoms Musculoskeletal: Reports: Back Pain Skin: Reports: No Symptoms Neurological: Reports: No Symptoms Psychiatric: Reports: Anxiety - Patient Data Vitals - Most Recent: Last Vital Signs Temp 100.5 F 04/18/17 02:00 Pulse 101 H 04/18/17 02:00 Resp 16 04/18/17 02:00 BP 114/73 04/18/17 02:00 Pulse Ox 94 L 04/18/17 02:00 Weight - Most Recent: 184 lb I&O - Last 24 Hours: Intake & Output 04/17/17 04/17/17 04/18/17 14:59 22:59 06:59 Intake Total 1440 600 Balance 1440 600 Med Orders - Current: Current Medications Fluoxetine HCl (Prozac) 20 mg PO DAILY [facility] Last Admin: 04/17/17 09:02 Dose: 20 mg Gabapentin (Neurontin) 300 mg PO TID [facility] Last Admin: 04/17/17 21:03 Dose: 300 mg Nicotine (Habitrol) 7 mg TRDERM DAILY [facility] Last Admin: 04/17/17 09:06 Dose: 7 mg Quetiapine Fumarate (Seroquel) 50 mg PO TID PRN PRN Reason: Anxiety Last Admin: 04/17/17 15:08 Dose: 50 mg Quetiapine Fumarate 100 mg/ (Quetiapine Fumarate 50 mg) 150 mg PO BEDTIME [facility] Last Admin: 04/17/17 21:02 Dose: 150 mg Discontinued Medications Diazepam (Valium.) 10 mg PO ONETIME ONE Stop: 04/17/17 04:18 Last Admin: 04/17/17 04:33 Dose: 10 mg Pneumococcal Polyvalent Vaccine (Pneumovax 23) 0.5 ml IM .ONCE ONE Stop: 04/17/17 12:01 Quetiapine Fumarate (Seroquel) 150 mg PO BEDTIME [facility] - Exam General: Alert, Oriented HEENT: Pupils Equal, Pupils Reactive, EOMI, Mucous Membr. Moist/[place] Neck: Supple Lungs: Clear to Auscultation, Normal Respiratory Effort Cardiovascular: Regular Rate, Regular Rhythm GI/Abdominal Exam: Normal Bowel Sounds, Soft, Non-Tender, No Organomegaly, No Distention, No Abnormal Bruit, No Mass, Pelvis Stable Back Exam: Vertebral Tenderness Extremities: Normal Inspection, Normal Range of Motion, Non-Tender, No Pedal Edema, Normal Capillary Refill Peripheral Pulses: 1+: Radial (L), Radial (R) Skin: Warm, Dry, Intact Neurological: No New Focal Deficit Psy/Mental Status: Anxious - Problem List Review Problem List Initiated/Reviewed/Updated: Yes - My Orders Last 24 Hours: My Active Orders 04/17/17 07:46 Resuscitation Status Routine 04/17/17 08:00 Patient Status [ADT] Routine Oxygen Therapy [RC] PRN VTE/DVT Education [RC] Per Unit Routine Vital Signs [RC] Q4H 04/17/17 08:02 Intake and Output [RC] Q12H 04/17/17 08:04 QUEtiapine [SEROquel] 50 mg PO TID PRN 04/17/17 08:39 Consult to Park Keeper [CONS] Routine 04/17/17 09:00 FLUoxetine [PROzac] 20 mg PO DAILY Gabapentin [Neurontin] 300 mg PO TID Nicotine [Habitrol] 7 mg TRDERM DAILY 04/17/17 21:00 Quetiapine [Seroquel] 150 mg PO BEDTIME 04/17/17 Breakfast Regular Diet [DIET] - Plan Plan:: Assessment/Plan: #1. Bipolar disorder: Will put her back on Seroquel 150mg at h.s. and 50 mg as needed during the day. #2. Depression: Stable on Viibryd will start Prozac instead. #3. Insomnia: will treat this with Seroquel not Temazepam. #4. Anxiety: Meds as above. #5. Fibramyalgia and DDD. Controlled with Gabapentin and will continue but with a smaller dose and taper this off over time. Plan home today..
[2017-04-18 07:38] VITALS: BP 98/52
[2017-04-18] MEDS: Gabapentin 300 MG Cap PO SCH (10:12)
[2017-04-18] MEDS: FLUoxetine 20 MG Cap PO SCH (10:12)
[2017-04-18] MEDS: Nicotine 7 MG/24 Hr Patch TRDERM SCH (10:16)
== END 2017-04-18 10:33 | disposition home or self-care (01) ==
LOC: JP.ED 03:24 → JP.MS 04:13
PROVIDERS: ADMIT Internal Medicine; ATTEND Internal Medicine
DX: F31.9 Bipolar disorder, unspecified (principal); G47.00 Insomnia, unspecified; F41.9 Anxiety disorder, unspecified; M79.7 Fibromyalgia; J45.909 Unspecified asthma, uncomplicated; E66.9 Obesity, unspecified; Z98.890 Other specified postprocedural states; F17.210 Nicotine dependence, cigarettes, uncomplicated; Z79.899 Other long term (current) drug therapy; Z88.0 Allergy status to penicillin; Z68.30 Body mass index [BMI] 30.0-30.9, adult
CPT/HCPCS: 99285; A9270; G0378

== ENCOUNTER 2017-04-19 00:58 | Emergency (ER) | payer MEDICAID ==
[2017-04-19 01:07] VITALS: BP 125/74
[2017-04-19] MEDS ORDERED: Diazepam 5 MG Tab PO ONE (01:32)
--- NOTE | 2017-04-19 01:34 | EDM.PDOC ---
ED HPI GENERAL MEDICAL PROBLEM - General Chief Complaint: Behavioral/Psych Stated Complaint: MEDICAL [facility] Time Seen by Provider: 04/19/17 01:11 Source of Information: Reports: Patient, EMS Notes Reviewed, RN History Limitations: Reports: No Limitations - History of Present Illness INITIAL COMMENTS - FREE TEXT/NARRATIVE: anxiety; this is a 41 year old female present to ER via EMS for concerns of not feeling well. she was discharge from the Hospital this morning for medication adjustment. she has taken Gabapentin 300mg 4 times today, and Seroquel 100mg at bedtime. She lives alone at the [facility]. Doesn't want to be alone in her apartment, wants to be at her Mother's home. Today she has been eating and drinking, she has been eating "junk" foods such as potato chips, tator tots and other foods. -denies any fever,chills, nausea, vomiting, dysuria, cough or diarrhea. -she has been taking her temperature on and off all day with her highest temperature at 99.8 Onset: Today Duration: Constant Location: Reports: Generalized Improves with: Reports: None Worsens with: Reports: None Context: Reports: Other (medication adjustment) Associated Symptoms: Reports: No Other Symptoms bilateral feet Pain Score (Numeric/FACES): 8 chest pain Pain Score (Numeric/FACES): 3 - Related Data Allergies Allergy/AdvReac Type Severity Reaction Status Date / Time Penicillins Allergy Hives Verified 04/19/17 00:59 Home Meds: Home Meds FLUoxetine [PROzac] 20 mg PO DAILY cap 04/18/17 [Rx] Gabapentin [Neurontin] 300 mg PO BID cap 04/18/17 [Rx] Nicotine [Habitrol] 7 mg TRDERM DAILY patch 04/18/17 [Rx] QUEtiapine [SEROquel] 50 mg PO TID PRN tablet 04/18/17 [Rx] Past Medical History HEENT History: Reports: Impaired Vision Respiratory History: Reports: Asthma, Bronchitis, Recurrent, Pneumonia, Recurrent Gastrointestinal History: Reports: Chronic Diarrhea, Irritable Bowel Syndrome 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: Other OB/BYN History: states had "internal and external" ultrasound 2 months ago , found thickening of uterine wall Musculoskeletal History: Reports: Arthritis, Back Pain, Chronic, Fibromyalgia Neurological History: Reports: Migraines Psychiatric History: Reports: Anxiety, Bipolar, Depression, Psych Hospitalization(s), Suicide Attempt Endocrine/Metabolic History: Reports: Obesity/BMI 30+ - Infectious Disease History Infectious Disease History: Reports: Chicken Pox - Past Surgical History Respiratory Surgical History: Reports: Other (See Below) Female Surgical History: Reports: Section Social & Family History - Tobacco Use Smoking Status *Q: Current Every Day Smoker Years of Tobacco use: 30 Packs/Tins Daily: 0.5 Used Tobacco, but Quit: No Month Tobacco Last Used: october Second Hand Smoke Exposure: No - Caffeine Use Caffeine Use: Reports: Coffee, Soda, Tea Other Caffeine Use: minimal coffee, soda, and tea - Alcohol Use Days Per Week of Alcohol Use: 1 Number of Drinks Per Day: 2 Total Drinks Per Week: 2 - Recreational Drug Use Recreational Drug Use: No Drug Use in Last 12 Months: Yes Recreational Drug Type: Reports: Marijuana/Hashish Recreational Drug Use Frequency: Weekly Recreational Drug Last Use: 1 week - Living Situation & Occupation Living situation: Reports: Single Occupation: Employed ED ROS GENERAL - Review of Systems Review Of Systems: See Below Constitutional: Reports: Other (not feeling well, anxiety.) HEENT: Reports: No Symptoms Respiratory: Reports: No Symptoms Cardiovascular: Reports: No Symptoms Endocrine: Reports: No Symptoms GI/Abdominal: Reports: Constipation : Reports: No Symptoms Musculoskeletal: Reports: No Symptoms Skin: Reports: No Symptoms Neurological: Reports: No Symptoms Psychiatric: Reports: Anxiety Hematologic/Lymphatic: Reports: No Symptoms Immunologic: Reports: No Symptoms ED EXAM, GENERAL - Physical Exam Exam: See Below Exam Limited By: No Limitations General Appearance: Alert, WD/WN, No Apparent Distress Eye Exam: Bilateral Eye: Normal Inspection Ears: Normal External Exam, Normal Canal, Hearing Grossly Normal, Normal TMs Nose: Normal Inspection, Normal Mucosa Throat/Mouth: Normal Inspection, Normal Lips, Normal Teeth, Normal Gums, Normal Oropharynx, Normal Voice, No Airway Compromise Head: Atraumatic, Normocephalic Neck: Normal Inspection, Supple, Non-Tender, Full Range of Motion Respiratory/Chest: No Respiratory Distress, Lungs Clear, Normal Breath Sounds, No Accessory Muscle Use, Chest Non-Tender Cardiovascular: Normal Peripheral Pulses, Regular Rate, Rhythm, No Edema, No Murmur Peripheral Pulses: 2+: Radial (L), Radial (R), Dorsalis Pedis (L), Dorsalis Pedis (R) GI/Abdominal: Normal Bowel Sounds, Soft, Non-Tender, No Organomegaly (Female) Exam: Deferred Rectal (Female) Exam: Deferred Back Exam: Normal Inspection, Full Range of Motion Extremities: Normal Inspection, Normal Range of Motion, Non-Tender, No Pedal Edema, Normal Capillary Refill Neurological: Alert, Oriented, Normal Cognition, No Motor/Sensory Deficits Psychiatric: Normal Affect, Normal Mood, Flat Affect Skin Exam: Warm, Dry, Intact, Normal Color, No Rash Lymphatic: No Adenopathy Course - Vital Signs Last Recorded V/S: Last Vital Signs Temp 36.5 C 04/19/17 01:01 Pulse 90 04/19/17 01:01 Resp 16 04/19/17 01:01 BP 125/74 04/19/17 01:01 Pulse Ox 99 04/19/17 01:01 - Orders/Labs/Meds Meds: Medications Discontinued Medications Generic Name Dose Route Start Last Admin Trade Name Freq PRN Reason Stop Dose Admin Diazepam 10 mg 04/19/17 01:32 04/19/17 01:38 Valium. PO 04/19/17 01:33 10 mg ONETIME ONE Administration - Re-Assessments/Exams Free Text/Narrative Re-Assessment/Exam: will give Valium 10 mg po advise to follow up with Primary Care Provider on Thursday or early next week advise to take medication as prescribed by her Provider, needs to take as directed drink plenty of fluids, eat healthy, needs walk and get exercise Ms. Hyatt agrees with plan of care. Departure - Departure Time of Disposition: 01:45 Disposition: Home, Self-Care 01 Condition: Good Clinical Impression: Anxiety - Discharge Information Instructions: Panic Attacks, [id number] Referrals: PCP,None [Primary Care Provider] - Forms: ED Department Discharge Care Plan Goals: Anxiety -given Valium in ER -advised to take medication as prescribed by her Doctor -follow up with Primary Care Provider on Thursday for recheck return to Clinic, Urgent Care or ER if not improved or symptoms worsen. - Problem List & Annotations (1) Anxiety SNOMED Code(s): 26957425 Code(s): F41.9 - ANXIETY DISORDER, UNSPECIFIED Status: Chronic Priority: Low - Problem List Review Problem List Initiated/Reviewed/Updated: Yes - Assessment/Plan Plan: Anxiety -given Valium in ER -advised to take medication as prescribed by her Doctor -follow up with Primary Care Provider on Thursday for recheck return to Clinic, Urgent Care or ER if not improved or symptoms worsen.
== END 2017-04-19 01:45 | disposition home or self-care (01) ==
LOC: JP.ED 00:58
DX: F41.9 Anxiety disorder, unspecified (principal); F31.9 Bipolar disorder, unspecified; J45.909 Unspecified asthma, uncomplicated; Z88.0 Allergy status to penicillin; Z79.899 Other long term (current) drug therapy
CPT/HCPCS: 99284; A9270

== ENCOUNTER 2017-06-13 08:08 | Emergency (ER) | payer MEDICAID ==
--- NOTE | 2017-06-13 09:00 | EDM.PDOC ---
ED HPI GENERAL MEDICAL PROBLEM - General Chief Complaint: ENT Problem Stated Complaint: TOOTH PAIN Time Seen by Provider: 06/13/17 08:48 Source of Information: Reports: Patient, RN Notes Reviewed - History of Present Illness INITIAL COMMENTS - FREE TEXT/NARRATIVE: Pt has infected and painful wisdom teeth on the lower level . She has taken 3 courses of antibiotic therapy. She has a yeast infection. Onset: Gradual Duration: Day(s): Location: Reports: Face Quality: Reports: Pressure Associated Symptoms: Reports: Other (pain in the area of the wisdom teeth, lower ) pain in spine Pain Score (Numeric/FACES): 7 - Related Data Allergies Allergy/AdvReac Type Severity Reaction Status Date / Time Penicillins Allergy Hives Verified 04/19/17 00:59 Home Meds: Home Meds FLUoxetine [PROzac] 20 mg PO DAILY cap 04/18/17 [Rx] Gabapentin [Neurontin] 300 mg PO BID cap 04/18/17 [Rx] Naproxen 375 mg PO 06/13/17 [History] QUEtiapine [SEROquel] 100 mg PO DAILY 06/13/17 [History] tiZANidine [Zanaflex] 4 mg BID 06/13/17 [History] Past Medical History HEENT History: Reports: Impaired Vision Respiratory History: Reports: Asthma, Bronchitis, Recurrent, Pneumonia, Recurrent Gastrointestinal History: Reports: Chronic Diarrhea, Irritable Bowel Syndrome TECHNICAL SME History: Reports: Other OB/BYN History: states had "internal and external" ultrasound 2 months ago , found thickening of uterine wall Musculoskeletal History: Reports: Arthritis, Back Pain, Chronic, Fibromyalgia Neurological History: Reports: Migraines Psychiatric History: Reports: Anxiety, Bipolar, Depression, Psych Hospitalization(s), Suicide Attempt Endocrine/Metabolic History: Reports: Obesity/BMI 30+ - Infectious Disease History Infectious Disease History: Reports: Chicken Pox - Past Surgical History Female Surgical History: Reports: Section Social & Family History - Tobacco Use Smoking Status *Q: Current Every Day Smoker Years of Tobacco use: 30 Packs/Tins Daily: 0.5 Used Tobacco, but Quit: No Month Tobacco Last Used: october Second Hand Smoke Exposure: No - Caffeine Use Caffeine Use: Reports: Coffee, Soda, Tea Other Caffeine Use: minimal coffee, soda, and tea - Alcohol Use Days Per Week of Alcohol Use: 1 Number of Drinks Per Day: 2 Total Drinks Per Week: 2 - Recreational Drug Use Recreational Drug Use: No Drug Use in Last 12 Months: Yes Recreational Drug Type: Reports: Marijuana/Hashish Recreational Drug Use Frequency: Weekly Recreational Drug Last Use: 1 week - Living Situation & Occupation Living situation: Reports: Single Occupation: Employed ED ROS ENT - Review of Systems Review Of Systems: See Below Constitutional: Reports: No Symptoms HEENT: Reports: Dental Pain Respiratory: Reports: No Symptoms Cardiovascular: Reports: No Symptoms Endocrine: Reports: No Symptoms GI/Abdominal: Reports: No Symptoms : Reports: No Symptoms Musculoskeletal: Reports: No Symptoms Skin: Reports: No Symptoms ED EXAM, ENT - Physical Exam Exam: See Below Text/Narrative:: pt arrived with pain in the dental area--both lower wisdom teeth. She is also complaining of a yeast infection from the antibiotic therapy. Exam Limited By: No Limitations General Appearance: Alert, Anxious, Mild Distress Eye Exam: Right Eye: Other Ears: Normal TMs Nose: Normal Inspection Mouth/Throat: Other ( both lower wisdom teeth are swollen and carious. They are tender to palpate. She does not have alot of swollen gums. ) Head: Atraumatic Neck: Normal Inspection Respiratory/Chest: No Respiratory Distress Cardiovascular: Regular Rate, Rhythm GI/Abdominal: Soft, Non-Tender Course - Orders/Labs/Meds Orders: Active Orders 24 hr Category Date Time Status CBC WITH AUTO DIFF [HEME] Urgent Lab 06/13/17 08:47 Ordered COMPREHENSIVE METABOLIC PN,CMP [CHEM] Urgent Lab 06/13/17 08:47 Ordered CRP [C-REACTIVE PROTEIN] [CHEM] Stat Lab 06/13/17 08:47 Ordered UA W/MICROSCOPIC [URIN] Urgent Lab 06/13/17 08:47 Uncollected - Re-Assessments/Exams Free Text/Narrative Re-Assessment/Exam: 06/13/17 09:25 pt arrived with pain in the wisdom teeth area on the lower gum line. Her wbc is normal. 06/13/17 09:25 06/13/17 09:26 chemistries are normal. Her urine looks clear. Her hydration is good. Her specfic gravity on the urine is 1.010 Departure - Departure Time of Disposition: 09:27 Disposition: Home, Self-Care 01 Condition: Fair Clinical Impression: Tooth infection - Discharge Information Referrals: Sarath Peck Sr, MD [Primary Care Provider] - Care Plan Goals: irrigate mouth frequently with warm water, kefex 500mg tid for 10 days, stop flagyl, difluran 50mg now and repeat every 5 days for the yeast infection, keep appt with oral surgery. - My Orders Last 24 Hours: My Active Orders 06/13/17 08:47 CBC WITH AUTO DIFF [HEME] Urgent COMPREHENSIVE METABOLIC PN,CMP [CHEM] Urgent CRP [C-REACTIVE PROTEIN] [CHEM] Stat UA W/MICROSCOPIC [URIN] Urgent - Assessment/Plan Last 24 Hours: My Active Orders 06/13/17 08:47 CBC WITH AUTO DIFF [HEME] Urgent COMPREHENSIVE METABOLIC PN,CMP [CHEM] Urgent CRP [C-REACTIVE PROTEIN] [CHEM] Stat UA W/MICROSCOPIC [URIN] Urgent
[2017-06-13 09:37] VITALS: BP 141/64
== END 2017-06-13 09:38 | disposition home or self-care (01) ==
LOC: JP.ED 08:08
DX: K04.7 Periapical abscess without sinus (principal); K02.9 Dental caries, unspecified; Z88.0 Allergy status to penicillin; Z79.899 Other long term (current) drug therapy; F17.210 Nicotine dependence, cigarettes, uncomplicated
CPT/HCPCS: 36415; 80053; 81001; 85025; 86140; 99283

== ENCOUNTER 2017-08-09 08:29 | Emergency (ER) | payer MEDICAID ==
[2017-08-09 08:41] VITALS: BP 138/64
--- NOTE | 2017-08-09 09:51 | EDM.PDOC ---
ED HPI GENERAL MEDICAL PROBLEM - General Chief Complaint: ENT Problem Stated Complaint: INFECTED TOOTH AREA Time Seen by Provider: 08/09/17 08:45 Source of Information: Reports: Patient History Limitations: Reports: No Limitations - History of Present Illness INITIAL COMMENTS - FREE TEXT/NARRATIVE: pt had her wisdom teeth extracted 6.5 weeks ago. She is now having jaw pain worse on the left than the rt. She is also coughing up alot of yellowish mucous from her chest. She does clinch her teeth some so she has some tenderness over the tmj area. Onset: Gradual Duration: Hour(s): Location: Reports: Face, Other ( Pt has tenderness over the jaw area. ) Associated Symptoms: Reports: No Other Symptoms Oral/Mouth Pain Score (Numeric/FACES): 2 - Related Data Allergies Allergy/AdvReac Type Severity Reaction Status Date / Time Penicillins Allergy Hives Verified 08/09/17 08:41 Home Meds: Home Meds FLUoxetine [PROzac] 20 mg PO DAILY cap 04/18/17 [Rx] Gabapentin [Neurontin] 300 mg PO BID cap 04/18/17 [Rx] Naproxen 375 mg PO ASDIRECTED PRN 06/13/17 [History] QUEtiapine [SEROquel] 100 mg PO DAILY 06/13/17 [History] tiZANidine [Zanaflex] 4 mg PO BID 06/13/17 [History] Past Medical History HEENT History: Reports: Impaired Vision Respiratory History: Reports: Asthma, Bronchitis, Recurrent, Pneumonia, Recurrent Gastrointestinal History: Reports: Chronic Diarrhea, Irritable Bowel Syndrome 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 OB/BYN History: states had "internal and external" ultrasound 2 months ago , found thickening of uterine wall Musculoskeletal History: Reports: Arthritis, Back Pain, Chronic, Fibromyalgia Neurological History: Reports: Migraines Psychiatric History: Reports: Anxiety, Bipolar, Depression, Psych Hospitalization(s), Suicide Attempt Endocrine/Metabolic History: Reports: Obesity/BMI 30+ - Infectious Disease History Infectious Disease History: Reports: Chicken Pox - Past Surgical History HEENT Surgical History: Reports: Oral Surgery Female Surgical History: Reports: Section Social & Family History - Tobacco Use Smoking Status *Q: Current Every Day Smoker Years of Tobacco use: 30 Packs/Tins Daily: 0.5 Used Tobacco, but Quit: No Month Tobacco Last Used: may Second Hand Smoke Exposure: No - Caffeine Use Caffeine Use: Reports: Coffee Other Caffeine Use: minimal coffee, soda, and tea - Alcohol Use Days Per Week of Alcohol Use: 1 Number of Drinks Per Day: 2 Total Drinks Per Week: 2 - Recreational Drug Use Recreational Drug Use: Yes Drug Use in Last 12 Months: Yes Recreational Drug Type: Reports: Marijuana/Hashish Recreational Drug Use Frequency: Weekly Recreational Drug Last Use: 1 week - Living Situation & Occupation Living situation: Reports: Single Occupation: Employed ED ROS ENT - Review of Systems Review Of Systems: See Below Constitutional: Reports: No Symptoms HEENT: Reports: Other (pain in the post jaw around the extracton site for her wisdom teeth. ) Respiratory: Reports: Cough, Sputum Cardiovascular: Reports: No Symptoms Endocrine: Reports: No Symptoms GI/Abdominal: Reports: No Symptoms : Reports: No Symptoms Musculoskeletal: Reports: No Symptoms Skin: Reports: No Symptoms Neurological: Reports: No Symptoms ED EXAM, ENT - Physical Exam Exam: See Below Text/Narrative:: Pt is coughing up yellow sputum and alot of it. She has pain in the extraction sites particularly on the left. Exam Limited By: No Limitations General Appearance: Alert, Mild Distress Ears: Normal TMs Nose: Normal Inspection Mouth/Throat: Other ( Pt is quite tender in the jaw right by where the wisdom teeth were extracted. This is much worse on the left. ) Head: Atraumatic Neck: Lymphadenopathy (R), Lymphadenopathy (L) Respiratory/Chest: No Respiratory Distress, Other (Pt has a few rhonchi in the upper lung dao. ) Cardiovascular: Regular Rate, Rhythm Course - Vital Signs Last Recorded V/S: Last Vital Signs Temp 36.9 C 08/09/17 08:37 Pulse 76 08/09/17 08:37 Resp 18 08/09/17 08:37 BP 138/64 08/09/17 08:37 Pulse Ox 95 08/09/17 08:37 Departure - Departure Time of Disposition: 09:52 Disposition: Home, Self-Care 01 Condition: Fair Clinical Impression: Pain, dental, Bronchitis - Discharge Information Instructions: Acute Bronchitis, Adult Referrals: Sarath Peck Sr, MD [Primary Care Provider] - Forms: ED Department Discharge Care Plan Goals: clindomycin 300mg tid, diflucan 100mg , use yogurt or probiotic while on cllindomycin
== END 2017-08-09 10:20 | disposition home or self-care (01) ==
LOC: JP.ED 08:29
DX: K08.89 Other specified disorders of teeth and supporting structures (principal); J40 Bronchitis, not specified as acute or chronic; Z87.01 Personal history of pneumonia (recurrent); F31.9 Bipolar disorder, unspecified; F17.210 Nicotine dependence, cigarettes, uncomplicated; Z88.0 Allergy status to penicillin; Z79.899 Other long term (current) drug therapy; Z98.890 Other specified postprocedural states
CPT/HCPCS: 99283

== ENCOUNTER 2017-08-23 12:23 | Emergency (ER) | payer MEDICAID ==
[2017-08-23 14:17] VITALS: BP 133/87
--- NOTE | 2017-08-23 15:38 | EDM.PDOC ---
ED HPI GENERAL MEDICAL PROBLEM - General Chief Complaint: General Stated Complaint: BLOOD TEST Time Seen by Provider: 08/23/17 14:16 Source of Information: Reports: Patient History Limitations: Reports: No Limitations - History of Present Illness INITIAL COMMENTS - FREE TEXT/NARRATIVE: This patient said that she is here to get checked for HIV. She said that she had sex with a man who might have HIV initially 2 weeks ago and she said at that time he didn't appear to ejaculate. She then had sex with him again 3 nights ago. Someone told her that this individual had been in a relationship with a woman who had HIV and sometime over the past year. The patient has not contacted the her ex-partner about her concerns about HIV apparently they' re not on speaking terms anymore although this individual lives in the same apartment building as the patient. She is unable to contact him but apparently not willing. - Related Data Allergies Allergy/AdvReac Type Severity Reaction Status Date / Time Penicillins Allergy Hives Verified 08/23/17 14:17 Home Meds: Home Meds FLUoxetine [PROzac] 20 mg PO DAILY cap 04/18/17 [Rx] Gabapentin [Neurontin] 300 mg PO BID cap 04/18/17 [Rx] Naproxen 375 mg PO ASDIRECTED PRN 06/13/17 [History] QUEtiapine [SEROquel] 100 mg PO DAILY 06/13/17 [History] tiZANidine [Zanaflex] 4 mg PO BID 06/13/17 [History] Past Medical History HEENT History: Reports: Impaired Vision Respiratory History: Reports: Asthma, Bronchitis, Recurrent, Pneumonia, Recurrent Gastrointestinal History: Reports: Chronic Diarrhea, Irritable Bowel Syndrome 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 OB/BYN History: states had "internal and external" ultrasound 2 months ago , found thickening of uterine wall Musculoskeletal History: Reports: Arthritis, Back Pain, Chronic, Fibromyalgia Neurological History: Reports: Migraines Psychiatric History: Reports: Anxiety, Bipolar, Depression, Psych Hospitalization(s), Suicide Attempt Endocrine/Metabolic History: Reports: Obesity/BMI 30+ - Infectious Disease History Infectious Disease History: Reports: Chicken Pox - Past Surgical History HEENT Surgical History: Reports: Oral Surgery Female Surgical History: Reports: Section Social & Family History - Tobacco Use Smoking Status *Q: Current Every Day Smoker Years of Tobacco use: 30 Packs/Tins Daily: 0.5 Used Tobacco, but Quit: No Month Tobacco Last Used: october Second Hand Smoke Exposure: No - Caffeine Use Caffeine Use: Reports: Coffee Other Caffeine Use: minimal coffee, soda, and tea - Alcohol Use Days Per Week of Alcohol Use: 1 Number of Drinks Per Day: 2 Total Drinks Per Week: 2 - Recreational Drug Use Recreational Drug Use: Yes Drug Use in Last 12 Months: Yes Recreational Drug Type: Reports: Marijuana/Hashish Recreational Drug Use Frequency: Weekly Recreational Drug Last Use: 1 week - Living Situation & Occupation Living situation: Reports: Single Occupation: Employed ED ROS GENERAL - Review of Systems Review Of Systems: ROS reveals no pertinent complaints other than HPI. ED EXAM, GENERAL - Physical Exam Exam: See Below Exam Limited By: No Limitations General Appearance: Alert, WD/WN, No Apparent Distress Throat/Mouth: Normal Oropharynx Respiratory/Chest: Lungs Clear Cardiovascular: Regular Rate, Rhythm (Female) Exam: Other (Pelvic exam was not done on this patient since it was not indicated) Skin Exam: Warm, Dry Course - Vital Signs Last Recorded V/S: Last Vital Signs Temp 37.8 C 08/23/17 14:16 Pulse 72 08/23/17 14:16 Resp 20 08/23/17 14:16 BP 133/87 08/23/17 14:16 Pulse Ox 91 L 08/23/17 14:16 - Orders/Labs/Meds Orders: Active Orders 24 hr Category Date Time Status CHLAMYDIA,AND GC BY APTIMA Urgent Lab 08/23/17 14:59 Ordered HEPATITIS PANEL,ACUTE [REF] Stat Lab 08/23/17 15:22 Received RPR-TREP PALLIDIUM AB,REFLEX [REF] Stat Lab 08/23/17 15:22 Received Labs: Laboratory Tests 08/23/17 08/23/17 08/23/17 Range/Units 15:22 15:22 15:22 WBC 12.0 H (4.5-11.0) K/uL RBC 4.98 (3.30-5.50) M/uL Hgb 15.2 H (12.0-15.0) g/dL Hct 45.2 (36.0-48.0) % MCV 91 (80-98) fL MCH 31 (27-31) pg MCHC 34 (32-36) % Plt Count 338 (150-400) K/uL Neut % (Auto) 73 H (36-66) % Lymph % (Auto) 19 L (24-44) % [place] % (Auto) 6 (2-6) % Eos % (Auto) 2 (2-4) % Baso % (Auto) 0 (0-1) % Sodium 141 (140-148) mmol/L Potassium 4.2 (3.6-5.2) mmol/L Chloride 106 (100-108) mmol/L Carbon Dioxide 26 (21-32) mmol/L Anion Gap 8.9 (5.0-14.0) mmol/L BUN 9 (7-18) mg/dL Creatinine 1.0 (0.6-1.0) mg/dL Est Cr Clr Drug Dosing 67.91 mL/min Estimated GFR (MDRD) > 60 (>60) Glucose 86 (74-106) mg/dL Calcium 9.1 (8.5-10.1) mg/dL Total Bilirubin 0.7 D (0.2-1.0) mg/dL AST 27 (15-37) U/L ALT 25 (12-78) U/L Alkaline Phosphatase 74 (46-116) U/L Total Protein 7.5 (6.4-8.2) g/dL Albumin 4.1 (3.4-5.0) g/dL Globulin 3.4 (2.3-3.5) g/dL Albumin/Globulin Ratio 1.2 (1.2-2.2) HIV-1 Ab Rapid Screen Non-reactive (NON-REACT.) - Re-Assessments/Exams Free Text/Narrative Re-Assessment/Exam: 08/23/17 19:07 I explained to the patient that we would be testing her for HIV hepatitis C hepatitis B as well as GC chlamydia and syphilis. I called around to [facility] which I believe was the only pharmacy open at the time and they don't have any of the drugs that are recommended for HIV post exposure prophylaxis by the CDC. I told the patient that the only place to get these prescriptions filled right now would be either in [place] or the [facility]. 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 We could order those prescriptions but they would not be here for somewhere between 2 and 3 days. Wear right at 72 hours now from her last possible exposure. I also told her that the testing needs to be done now if it's negative repeated in 4-6 weeks and 3 months and in 6 months and she eventually decided that she didn't want to do any of this. I insisted that the best thing to do right now is for her to contact her X partner and find out if he has HIV or would consider getting tested. I asked her to do that here in the emergency department and she just finally decided she didn't want to do any of this and just wanted to leave and follow-up with her family doctor. Considering that she had intercourse 4 weeks ago and again 3 nights ago as well as the low transmission rate from a single episode of unprotected intercourse I think it's reasonable to try to get this information from her ex-partner rather than to start her on this difficult post exposure prophylaxis which we really can't obtain in a timely manner. Departure - Departure Time of Disposition: 15:34 Disposition: Home, Self-Care 01 Condition: Fair Clinical Impression: HIV exposure - Discharge Information Instructions: Sexually Transmitted Disease, [id number], HIV Infection and AIDS Referrals: Sarath Peck Sr, MD [Primary Care Provider] - Forms: ED Department Discharge Additional Instructions: It would be best if you can find out if you're former partner actually has HIV. If you have been exposed to HIV then you need to get on medications within 72 hours. These medications or not available here they were if there ordered they' ll take 2 or 3 days to come in. If you were to be put on these medications it would be best to get them in either [place] or [place] where she would need to call first. If you're former partner test negative for HIV then there would be no reason to take those medications. Incidentally the medications would need to be taken for 28 days area If you or certain you were exposed to HIV then the HIV test need to be done now then repeated in 4-6 weeks again in 3 months and then finally again at 6 months. You can avoid all of this if you can determine for certain that you're former partner does not have HIV. I also ordered tests for hepatitis it's a blood test as well as gonorrhea and chlamydia that would be a urine test and syphilis which is a blood test if you haven't submitted a urine specimen in the gonorrhea and Chlamydia test will be done. It is standard procedure to check for these things when you check for HIV - My Orders Last 24 Hours: My Active Orders 08/23/17 14:59 CHLAMYDIA,AND GC BY APTIMA Urgent 08/23/17 15:22 HEPATITIS PANEL,ACUTE [REF] Stat RPR-TREP PALLIDIUM AB,REFLEX [REF] Stat - Assessment/Plan Last 24 Hours: My Active Orders 08/23/17 14:59 CHLAMYDIA,AND GC BY APTIMA Urgent 08/23/17 15:22 HEPATITIS PANEL,ACUTE [REF] Stat RPR-TREP PALLIDIUM AB,REFLEX [REF] Stat
== END 2017-08-23 15:47 | disposition home or self-care (01) ==
LOC: JP.ED 12:23
DX: Z20.6 Contact with and (suspected) exposure to human immunodeficiency virus [HIV] (principal); J45.909 Unspecified asthma, uncomplicated; F31.9 Bipolar disorder, unspecified; F17.210 Nicotine dependence, cigarettes, uncomplicated; Z88.0 Allergy status to penicillin; Z79.899 Other long term (current) drug therapy; Z87.01 Personal history of pneumonia (recurrent)
CPT/HCPCS: 36415; 80053; 80074; 85025; 86780; 87449; 99284

== ENCOUNTER 2018-09-12 12:41 | Emergency (ER) | payer MEDICAID ==
[2018-09-12 13:26] VITALS: BP 136/76
[2018-09-12] MEDS ORDERED: Ketorolac 60 MG/2 ML SDV IM ONE (14:33)
--- NOTE | 2018-09-12 14:41 | EDM.PDOC ---
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 (see below) (saline rinses as ordered by dentist) - Related Data Allergies Allergy/AdvReac Type Severity Reaction Status Date / Time Penicillins Allergy Hives Verified 09/12/18 13:33 Home Meds: Home Meds Gabapentin [Neurontin] 300 mg PO BID cap 04/18/17 [Rx] Naproxen 375 mg PO ASDIRECTED PRN 06/13/17 [History] QUEtiapine [SEROquel] 200 mg PO BEDTIME 06/13/17 [History] tiZANidine [Zanaflex] 4 mg PO BID 06/13/17 [History] Clindamycin HCl 300 mg PO TID 09/12/18 [History] PARoxetine HCl [Paxil] 40 mg PO BEDTIME 09/12/18 [History] Past Medical History HEENT History: Reports: Impaired Vision Respiratory History: Reports: Asthma, Bronchitis, Recurrent, Pneumonia, Recurrent Gastrointestinal History: Reports: Chronic Diarrhea, Irritable Bowel Syndrome 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: states had "internal and external" ultrasound 2 months ago , found thickening of uterine wall Musculoskeletal History: Reports: Arthritis, Back Pain, Chronic, Fibromyalgia Neurological History: Reports: Migraines Psychiatric History: Reports: Anxiety, Bipolar, Depression, Psych Hospitalization(s), Suicide Attempt Endocrine/Metabolic History: Reports: Obesity/BMI 30+ - Infectious Disease History Infectious Disease History: Reports: Chicken Pox - Past Surgical History HEENT Surgical History: Reports: Oral Surgery Female Surgical History: Reports: Section Social & Family History - Tobacco Use Smoking Status *Q: Current Every Day Smoker Years of Tobacco use: 20 Packs/Tins Daily: 0.5 - Caffeine Use Caffeine Use: Reports: Coffee, Soda Other Caffeine Use: minimal coffee, soda, and tea - Recreational Drug Use Recreational Drug Use: No - Living Situation & Occupation Living situation: Reports: Single Occupation: Employed ED ROS GENERAL - Review of Systems Review Of Systems: ROS reveals no pertinent complaints other than HPI. Constitutional: Reports: No Symptoms HEENT: Reports: Dental Pain (left jaw pain. ) Respiratory: Reports: No Symptoms Cardiovascular: Reports: No Symptoms Endocrine: Reports: No Symptoms Skin: Reports: No Symptoms Psychiatric: Reports: No Symptoms ED EXAM, GENERAL - Physical Exam Exam: See Below Exam Limited By: No Limitations General Appearance: Alert, WD/WN, No Apparent Distress Throat/Mouth: Normal Inspection, Normal Lips, Normal Teeth, Normal Gums, Other ( no lesions or masses to buccal mucosa or inner and outer gingival areas ) Neck: Normal Inspection Respiratory/Chest: No Respiratory Distress Extremities: Normal Inspection, Normal Range of Motion (does complain of left hip pain described as a flare up of sciatica pain. Noted. Reassurance given. ) Course - Vital Signs Last Recorded V/S: Last Vital Signs Temp 98.5 F 09/12/18 13:36 Pulse 81 09/12/18 13:36 Resp 18 09/12/18 13:36 BP 136/76 09/12/18 13:36 Pulse Ox 96 09/12/18 13:36 - Orders/Labs/Meds Meds: Medications Discontinued Medications Generic Name Dose Route Start Last Admin Trade Name [place] PRN Reason Stop Dose Admin Ketorolac Tromethamine 60 mg 09/12/18 14:33 09/12/18 14:39 Toradol IM 09/12/18 14:34 60 mg ONETIME ONE Administration Departure - Departure Disposition: Home, Self-Care 01 Condition: Good Clinical Impression: Pain, dental - Discharge Information *PRESCRIPTION DRUG MONITORING PROGRAM REVIEWED*: Not Applicable *COPY OF PRESCRIPTION DRUG MONITORING REPORT IN PATIENT JANY: Not Applicable Instructions: Preventive Dental Care, Adult Referrals: Diya Rod MD [Primary Care Provider] - Forms: ED Department Discharge Care Plan Goals: Patient feels antibiotic is no longer working after four days with no total resolution of symptoms. Reassurace given that changing antiobiotic may help in symptom resolution and return to normal baseline. Patient and mother very eager for therapy. IM Toradol given for moderate pain. Instymed prescription given. <Harpreet Ro - Last Filed: 09/13/18 08:38> ED ROS GENERAL - Review of Systems Review Of Systems: See Below Course - Re-Assessments/Exams Free Text/Narrative Re-Assessment/Exam: 09/13/18 08:38 Patient history and physical exam notes by the nurse practitioner were reviewed and repeated. I concur with the findings and treatment plan. Departure - Departure Time of Disposition: 14:59
== END 2018-09-12 14:59 | disposition home or self-care (01) ==
LOC: JP.ED 12:41
DX: K08.89 Other specified disorders of teeth and supporting structures (principal); Z88.0 Allergy status to penicillin; F17.210 Nicotine dependence, cigarettes, uncomplicated
CPT/HCPCS: 96372; 99282; J1885

== ENCOUNTER 2019-04-10 21:53 | Emergency (ER) | payer MEDICAID ==
[2019-04-10 22:20] VITALS: BP 137/77; PULSE 82
[2019-04-10] MEDS ORDERED: Albuterol/Ipratropium 3.0-0.5 MG/3 ML Neb Soln NEB ONE (22:26)
--- NOTE | 2019-04-10 22:28 | EDM.PDOC ---
ED HPI GENERAL MEDICAL PROBLEM - General Chief Complaint: Respiratory Problem Stated Complaint: BRONCHITIS Time Seen by Provider: 04/10/19 22:15 Source of Information: Reports: Patient History Limitations: Reports: No Limitations - History of Present Illness INITIAL COMMENTS - FREE TEXT/NARRATIVE: 43-year-old female with a cough and short of breath for 12 hours. She is a smoker. No fevers or chills, some rhinitis. She had a sore throat yesterday. Onset: Gradual Associated Symptoms: Reports: Cough, Shortness of Breath. Denies: Fever/Chills denies Pain Score (Numeric/FACES): 0 - Related Data Allergies Allergy/AdvReac Type Severity Reaction Status Date / Time Penicillins Allergy Hives Verified 04/10/19 22:06 Home Meds: Home Meds Naproxen 375 mg PO ASDIRECTED PRN 06/13/17 [History] QUEtiapine [SEROquel] 100 mg PO BEDTIME 06/13/17 [History] tiZANidine [Zanaflex] 4 mg PO QID 06/13/17 [History] Albuterol [Ventolin HFA] 2 puff INH Q4H PRN 04/10/19 [History] Gabapentin [Neurontin] 800 mg PO QID 04/10/19 [History] LORazepam 0.5 - 1 mg PO BID 04/10/19 [History] Latanoprost 1 drop TOP DAILY 04/10/19 [History] Lisdexamfetamine [Vyvanse] 70 mg PO DAILY 04/10/19 [History] Lurasidone [Latuda] 60 mg PO DAILY 04/10/19 [History] Past Medical History HEENT History: Reports: Impaired Vision Respiratory History: Reports: Asthma, Bronchitis, Recurrent, Pneumonia, Recurrent Gastrointestinal History: Reports: Chronic Diarrhea, Irritable Bowel Syndrome 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: 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 BUSINESS OFFICE COORDINATOR History: states had "internal and external" ultrasound 2 months ago , found thickening of uterine wall Musculoskeletal History: Reports: Arthritis, Back Pain, Chronic, Fibromyalgia Neurological History: Reports: Migraines Psychiatric History: Reports: Anxiety, Bipolar, Depression, Psych Hospitalization(s), Suicide Attempt Endocrine/Metabolic History: Reports: Obesity/BMI 30+ - Infectious Disease History Infectious Disease History: Reports: Chicken Pox - Past Surgical History HEENT Surgical History: Reports: Oral Surgery Female Surgical History: Reports: Section Social & Family History - Tobacco Use Smoking Status *Q: Current Every Day Smoker Years of Tobacco use: 30 Packs/Tins Daily: 1 Used Tobacco, but Quit: No Second Hand Smoke Exposure: Yes - Caffeine Use Caffeine Use: Reports: Tea Other Caffeine Use: minimal coffee, soda, and tea - Recreational Drug Use Recreational Drug Use: No - Living Situation & Occupation Living situation: Reports: Single Occupation: Employed ED ROS GENERAL - Review of Systems Review Of Systems: See Below Constitutional: Reports: Malaise. Denies: Fever, Chills HEENT: Reports: Rhinitis, Throat Pain Respiratory: Reports: Shortness of Breath, Wheezing, Cough Cardiovascular: Reports: Chest Pain (The central chest hurts from coughing) GI/Abdominal: Denies: Abdominal Pain, Nausea, Vomiting Neurological: Reports: No Symptoms. Denies: Headache ED EXAM, GENERAL - Physical Exam Exam: See Below Exam Limited By: No Limitations General Appearance: Alert, No Apparent Distress Throat/Mouth: Normal Inspection Respiratory/Chest: No Respiratory Distress, Wheezing (Patient has diffuse expiratory wheezes, especially when coughing) Cardiovascular: Regular Rate, Rhythm Course - Vital Signs Last Recorded V/S: Last Vital Signs Temp 97.8 F 04/10/19 22:19 Pulse 82 04/10/19 22:19 Resp 16 04/10/19 22:19 BP 137/77 04/10/19 22:19 Pulse Ox 95 04/10/19 22:19 - Orders/Labs/Meds Orders: Active Orders 24 hr Category Date Time Status RT Aerosol Therapy [RC] ASDIRECTED Care 04/10/19 22:26 Active Meds: Medications Discontinued Medications Generic Name Dose Route Start Last Admin Trade Name [place] PRN Reason Stop Dose Admin Albuterol/Ipratropium 3 ml 04/10/19 22:26 04/10/19 22:33 Duoneb 3.0-0.5 Mg/3 Ml NEB 04/10/19 22:27 3 ml ONETIME ONE Administration - Re-Assessments/Exams Free Text/Narrative Re-Assessment/Exam: 04/10/19 22:28 She was given a DuoNeb. 04/10/19 22:53 She had good improvement with the DuoNeb. Objectively she had markedly less wheezing, and subjectively she felt better. She will be placed on 60 mg of prednisone daily for 5 days. She has taken prednisone in the past and has tolerated it well. Departure - Departure Time of Disposition: 23:01 Disposition: Home, Self-Care 01 Clinical Impression: Acute viral bronchitis Reactive airway disease Qualifiers: Asthma severity: mild Asthma persistence: unspecified Qualified Code(s): J45.909 - Unspecified asthma, uncomplicated - Discharge Information Instructions: Viral Respiratory Infection, [id number] Referrals: Sarath Peck Sr, MD [Primary Care Provider] - Forms: ED Department Discharge Care Plan Goals: Take 6 pills of prednisone daily for 5 consecutive days, take the full dose daily with your first meal. Use inhalers on a regular basis if needed and recheck in 2-3 days if not improving. Try to reduce smoking. - My Orders Last 24 Hours: My Active Orders 04/10/19 22:26 RT Aerosol Therapy [RC] ASDIRECTED - Assessment/Plan Last 24 Hours: My Active Orders 04/10/19 22:26 RT Aerosol Therapy [RC] ASDIRECTED
== END 2019-04-10 23:01 | disposition home or self-care (01) ==
LOC: JP.ED 21:53
DX: J20.8 Acute bronchitis due to other specified organisms (principal); J45.909 Unspecified asthma, uncomplicated; F32.9 Major depressive disorder, single episode, unspecified; F41.9 Anxiety disorder, unspecified; E66.9 Obesity, unspecified; F17.210 Nicotine dependence, cigarettes, uncomplicated; Z88.0 Allergy status to penicillin; Z79.899 Other long term (current) drug therapy; Z68.38 Body mass index [BMI] 38.0-38.9, adult
CPT/HCPCS: 94640; 99284; J7620-GY

== ENCOUNTER 2019-04-11 00:38 | Inpatient (IN) | payer MEDICAID ==
--- NOTE | 2019-04-11 01:21 | EDM.PDOC ---
ED HPI GENERAL MEDICAL PROBLEM - General Chief Complaint: Respiratory Problem Stated Complaint: MEDICAL [facility] Time Seen by Provider: 04/11/19 01:05 Source of Information: Reports: Patient, EMS History Limitations: Reports: No Limitations - History of Present Illness INITIAL COMMENTS - FREE TEXT/NARRATIVE: 43-year-old female with 24 hours of reactive airways, asthma exacerbation and viral bronchitis who was in the emergency room earlier this evening and received a DuoNeb with good response. She did take 60 mg of prednisone but then became worse this morning, became anxious and more dyspneic and called the ambulance. On arrival she was again very wheezy and her O2 saturations were 88- 89%. She was given O2 and another DuoNeb in route and now is doing better again but O2 sats are still only 90-92% on room air. Associated Symptoms: Reports: Other (Anxious). Denies: Fever/Chills, Headaches Treatments WRAP YARN SORTER: Reports: Other (see below) Other Treatments WRAP YARN SORTER: Albuteral neb Lower Back Pain Score (Numeric/FACES): 4 - Related Data Allergies Allergy/AdvReac Type Severity Reaction Status Date / Time Penicillins Allergy Hives Verified 04/11/19 00:53 Home Meds: Home Meds Naproxen 375 mg PO ASDIRECTED PRN 06/13/17 [History] QUEtiapine [SEROquel] 100 mg PO BEDTIME 06/13/17 [History] tiZANidine [Zanaflex] 4 mg PO QID PRN 06/13/17 [History] Albuterol [Ventolin HFA] 2 puff INH Q4H PRN 04/10/19 [History] Gabapentin [Neurontin] 800 mg PO QID 04/10/19 [History] LORazepam 0.5 - 1 mg PO BID PRN 04/10/19 [History] Latanoprost 1 drop TOP DAILY 04/10/19 [History] Lisdexamfetamine [Vyvanse] 70 mg PO DAILY 04/10/19 [History] Lurasidone [Latuda] 60 mg PO DAILY 04/10/19 [History] Albuterol [Proventil Neb Soln] 2.5 mg NEB Q2H PRN neb 04/11/19 [Rx] Past Medical History HEENT History: Reports: Impaired Vision Respiratory History: Reports: Asthma, Bronchitis, Recurrent, Pneumonia, Recurrent Gastrointestinal History: Reports: Chronic Diarrhea, Irritable Bowel Syndrome 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 ROLLING MILL OPERATOR History: states had "internal and external" ultrasound 2 months ago , found thickening of uterine wall Musculoskeletal History: Reports: Arthritis, Back Pain, Chronic, Fibromyalgia Neurological History: Reports: Migraines Psychiatric History: Reports: Anxiety, Bipolar, Depression, Psych Hospitalization(s), Suicide Attempt Endocrine/Metabolic History: Reports: Obesity/BMI 30+ - Infectious Disease History Infectious Disease History: Reports: Chicken Pox - Past Surgical History HEENT Surgical History: Reports: Oral Surgery Female Surgical History: Reports: Section Social & Family History - Tobacco Use Smoking Status *Q: Current Every Day Smoker Years of Tobacco use: 30 Packs/Tins Daily: 0.5 Used Tobacco, but Quit: No Second Hand Smoke Exposure: Yes - Caffeine Use Caffeine Use: Reports: Tea Other Caffeine Use: minimal coffee, soda, and tea - Recreational Drug Use Recreational Drug Use: No - Living Situation & Occupation Living situation: Reports: Single Occupation: Employed ED ROS GENERAL - Review of Systems Review Of Systems: See Below Constitutional: Reports: Malaise. Denies: Fever, Chills HEENT: Reports: Throat Pain (Sore throat yesterday) Respiratory: Reports: Shortness of Breath, Wheezing, Cough. Denies: Sputum Cardiovascular: Reports: Chest Pain GI/Abdominal: Denies: Abdominal Pain Skin: Reports: Rash (Has a rash on her forehead and face) ED EXAM, GENERAL - Physical Exam Exam: See Below Exam Limited By: No Limitations General Appearance: Alert, No Apparent Distress, Other (Feeling better after nebulization) Eye Exam: Bilateral Eye: Normal Inspection Head: Atraumatic Respiratory/Chest: No Respiratory Distress, Wheezing (Some expiratory wheezes are still present diffusely) Cardiovascular: Regular Rate, Rhythm. No: Tachycardia (Lock in her) Extremities: Normal Inspection. No: Pedal Edema Neurological: Alert, Oriented Psychiatric: Normal Affect, Anxious Skin Exam: Warm, Dry Course - Vital Signs Last Recorded V/S: Last Vital Signs Temp 96.9 F 04/11/19 13:10 Pulse 113 H 04/11/19 13:10 Resp 18 04/11/19 13:10 BP 148/83 H 04/11/19 13:10 Pulse Ox 92 L 04/11/19 13:10 - Orders/Labs/Meds Labs: Laboratory Tests 04/11/19 04/11/19 Range/Units 01:33 01:33 WBC 13.1 H (4.5-11.0) K/uL RBC 4.42 (3.30-5.50) M/uL Hgb 13.3 (12.0-15.0) g/dL Hct 40.8 (36.0-48.0) % MCV 92 (80-98) fL MCH 30 (27-31) pg MCHC 33 (32-36) % Plt Count 250 (150-400) K/uL Neut % (Auto) 85 H (36-66) % Lymph % (Auto) 7 L (24-44) % [place] % (Auto) 5 (2-6) % Eos % (Auto) 3 (2-4) % Baso % (Auto) 0 (0-1) % Sodium 132 L (140-148) mmol/L Potassium 3.7 (3.6-5.2) mmol/L Chloride 101 (100-108) mmol/L Carbon Dioxide 27 (21-32) mmol/L Anion Gap 3.6 L (5.0-14.0) mmol/L BUN 10 (7-18) mg/dL Creatinine 0.8 (0.6-1.0) mg/dL Est Cr Clr Drug Dosing 83.59 mL/min Estimated GFR (MDRD) > 60 (>60) Glucose 115 H (74-106) mg/dL Calcium 9.2 (8.5-10.1) mg/dL Meds: Medications Discontinued Medications Generic Name Dose Route Start Last Admin Trade Name Freq PRN Reason Stop Dose Admin Albuterol 2.5 mg 04/11/19 02:33 04/11/19 12:49 Proventil Neb Soln NEB 2.5 mg Q2H PRN Administration Shortness of Breath Albuterol 0 gm 04/11/19 12:00 Ventolin Hfa INH Q4H PRN Wheezing Doxycycline Hyclate 100 mg 04/11/19 18:00 Vibramycin PO Q12H OC Doxycycline Hyclate 100 mg 04/11/19 03:00 04/11/19 03:18 Vibramycin PO 04/11/19 03:01 100 mg ONETIME ONE Administration Gabapentin 800 mg 04/11/19 16:00 04/11/19 15:06 Neurontin PO 800 mg QID OC Administration Sodium Chloride 80 mls @ 4 mls/sec 04/11/19 10:13 04/11/19 11:41 Normal Saline IV 04/11/19 10:14 3.7 mls/sec ONETIME ONE Administration Iopamidol 100 ml 04/11/19 10:15 04/11/19 11:43 Isovue-370 (76%) IV 04/11/19 10:16 100 ml . DIRECTED OC Administration Ketorolac Tromethamine 30 mg 04/11/19 12:12 04/11/19 12:30 Toradol IVPUSH 04/16/19 12:12 30 mg Q6H PRN Administration Headache Latanoprost 0 ml 04/12/19 21:00 Xalatan 0.005% Ophth Soln EYEBOTH BEDTIME OC Lorazepam 0.5 - 1 mg 04/11/19 12:58 04/11/19 13:08 Ativan PO 0.5 mg BID PRN Administration ANXIETY Lurasidone HCl 60 mg 04/12/19 09:00 Latuda PO DAILY OC Methylprednisolone Sodium Succinate 125 mg 04/11/19 01:22 04/11/19 01:42 Solu-Medrol IVPUSH 04/11/19 01:23 125 mg ONETIME ONE Administration Nicotine 21 mg 04/11/19 15:30 04/11/19 15:43 Habitrol TRDERM 21 mg DAILY OC Administration Lisdexamfetamine [ 70 mg 04/12/19 09:00 Vyvanse] 70 Mg)-- PO Ptom DAILY OC Non-Formulary Medication 375 mg 04/11/19 12:00 Naproxen [Naproxen] PO ASDIRECTED PRN Pain Quetiapine Fumarate 100 mg 04/11/19 21:00 Seroquel PO BEDTIME OC Sodium Chloride 10 ml 04/11/19 01:22 04/11/19 01:44 Saline Flush FLUSH 10 ml ASDIRECTED PRN Administration Keep Vein Open Sodium Chloride 10 ml 04/11/19 10:13 04/11/19 11:41 Saline Flush FLUSH 04/11/19 10:14 10 ml ONETIME ONE Administration Sumatriptan Succinate 6 mg 04/11/19 09:00 04/11/19 09:23 Imitrex SUBCUT 04/11/19 09:01 6 mg ONETIME ONE Administration Tizanidine HCl 4 mg 04/11/19 16:00 Zanaflex PO QID OC Tizanidine HCl 4 mg 04/11/19 12:20 Zanaflex PO QID PRN MUSCLE SPASM - Re-Assessments/Exams Free Text/Narrative Re-Assessment/Exam: 04/11/19 01:21 Discuss [address] condition with Dr. Sarath Peck, after a two-view chest x-ray a saline lock will be placed and she'll be given 125 mg of IV Solu-Medrol. CBC and BMP will be obtained and she'll be admitted overnight for asthma exacerbation failing outpatient treatment. 04/11/19 01:55 White count 13.1, two-view chest x-ray is normal. Departure - Departure Time of Disposition: 02:21 Disposition: Admitted As Inpatient 64 Clinical Impression: Acute viral bronchitis Exacerbation of asthma Qualifiers: Asthma severity: moderate Asthma persistence: persistent Qualified Code(s): J45.41 - Moderate persistent asthma with (acute) exacerbation - Discharge Information
[2019-04-11] MEDS ORDERED: Sodium Chloride 0.9% 10 ML Syringe FLUSH PRN (01:22)
[2019-04-11] MEDS ORDERED: methylPREDNISolone Sodium Succinate 125 MG/2 ML SDV IVPUSH ONE (01:22)
--- NOTE | 2019-04-11 01:56 | CRLCR ---
INDICATION: Dyspnea TECHNIQUE: Chest radiograph 2 views COMPARISON: 04/16/2017, 10/31/2015 FINDINGS: Moderate degradation of image quality noted due to body habitus. Mediastinum: The mediastinum is normal in appearance. The heart silhouette is normal in size and morphology. Lung: Both lungs are unremarkable in appearance. No sign of pleural effusion seen. No pneumothorax is identified. Bone and Soft tissue: Unremarkable for age. IMPRESSION: 1. No acute cardiopulmonary disease is seen. Dictated by: Solo Diaz MD @ 04/11/2019 01:54:23 (Electronically Signed)
[2019-04-11] MEDS ORDERED: Doxycycline 100 MG Cap PO ONE (03:00)
[2019-04-11] MEDS: Albuterol 0.083% 2.5 MG/3 ML Neb Soln NEB PRN ×3 (05:43→12:49)
[2019-04-11] MEDS ORDERED: SUMAtriptan 6 MG/0.5 ML SDV SUBCUT ONE (09:00)
[2019-04-11] MEDS ORDERED: Sodium Chloride 0.9% 10 ML Syringe FLUSH ONE (10:13)
[2019-04-11] MEDS ORDERED: Sodium Chloride 0.9% 80 ML IV ONE (10:13)
[2019-04-11] MEDS ORDERED: Iopamidol 755 Mg/ML 100 ML Bottle IV SCH (10:15)
--- NOTE | 2019-04-11 11:41 | PCM.HP.2 ---
H&P History of Present Illness - General Date of Service: 04/11/19 Admit Problem/Dx: Admission Diagnosis/Problem Admission Diagnosis/Problem Asthma with bronchitis Source of Information: Patient - History of Present Illness Initial Comments - Free Text/Narative: Sariah comes in for evaluation after having a sudden onset of shortness of breath yesterday. She said her mother has had a cough and then she developed a sore throat. She finally came in by ambulance and was admitted early this morning as she was in respiratory distress. While in emergency room and he was given steroids and nebulizer and improved some but still oxygen level was low. She also suffers from bipolar disorder and fibromyalgia and hypertension. Onset of Symptoms: Reports: Sudden Duration of Symptoms: Reports: Day(s): Location: Reports: Chest Associated Symptoms: Reports: Shortness of Breath, Weakness Lower Back Pain Score (Numeric/FACES): 4 - Related Data Allergies/Adverse Reactions: Allergies Allergy/AdvReac Type Severity Reaction Status Date / Time Penicillins Allergy Hives Verified 04/11/19 00:53 Home Medications: Home Meds Naproxen 375 mg PO ASDIRECTED PRN 06/13/17 [History] QUEtiapine [SEROquel] 100 mg PO BEDTIME 06/13/17 [History] tiZANidine [Zanaflex] 4 mg PO QID PRN 06/13/17 [History] Albuterol [Ventolin HFA] 2 puff INH Q4H PRN 04/10/19 [History] Gabapentin [Neurontin] 800 mg PO QID 04/10/19 [History] LORazepam 0.5 - 1 mg PO BID PRN 04/10/19 [History] Latanoprost 1 drop TOP DAILY 04/10/19 [History] Lisdexamfetamine [Vyvanse] 70 mg PO DAILY 04/10/19 [History] Lurasidone [Latuda] 60 mg PO DAILY 04/10/19 [History] Albuterol [Proventil Neb Soln] 2.5 mg NEB Q2H PRN neb 04/11/19 [Rx] Past Medical History HEENT History: Reports: Impaired Vision Respiratory History: Reports: Asthma, Bronchitis, Recurrent, Pneumonia, Recurrent Gastrointestinal History: Reports: Chronic Diarrhea, Irritable Bowel Syndrome 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/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 History: states had "internal and external" ultrasound 2 months ago , found thickening of uterine wall Musculoskeletal History: Reports: Arthritis, Back Pain, Chronic, Fibromyalgia Neurological History: Reports: Migraines Psychiatric History: Reports: Anxiety, Bipolar, Depression, Psych Hospitalization(s), Suicide Attempt Endocrine/Metabolic History: Reports: Obesity/BMI 30+ - Infectious Disease History Infectious Disease History: Reports: Chicken Pox - Past Surgical History HEENT Surgical History: Reports: Oral Surgery Female Surgical History: Reports: Section Social & Family History - Tobacco Use Smoking Status *Q: Current Every Day Smoker Years of Tobacco use: 30 Packs/Tins Daily: 0.5 Used Tobacco, but Quit: No Second Hand Smoke Exposure: Yes - Caffeine Use Caffeine Use: Reports: Tea Other Caffeine Use: minimal coffee, soda, and tea - Recreational Drug Use Recreational Drug Use: No - Living Situation & Occupation Living situation: Reports: Single Occupation: Employed H&P Review of Systems - Review of Systems: Review Of Systems: See Below General: Reports: Weakness HEENT: Reports: Sore Throat Pulmonary: Reports: Shortness of Breath, Wheezing Cardiovascular: Reports: No Symptoms Gastrointestinal: Reports: No Symptoms Genitourinary: Reports: No Symptoms Musculoskeletal: Reports: Leg Pain Skin: Reports: No Symptoms Psychiatric: Reports: Depression Neurological: Reports: Weakness Hematologic/Lymphatic: Reports: No Symptoms Immunologic: Reports: No Symptoms Exam - Exam Exam: See Below - Vital Signs Vital Signs: Last Vital Signs Temp 97.4 F 04/11/19 07:45 Pulse 73 04/11/19 07:45 Resp 16 04/11/19 07:45 BP 115/56 L 04/11/19 07:45 Pulse Ox 90 L 04/11/19 07:45 Weight: 234 lb 6 oz - Exam General: Alert, Oriented, 4 HEENT: PERRLA, Hearing Intact, Mucosa Moist & Weeping Water, Nares Patent, Normal Nasal Septum, Posterior Pharynx Clear, Conjunctiva Clear, EOMI, EACs Clear, TMs Clear Neck: Supple, Trachea Midline, 2 Lungs: Decreased Breath Sounds Cardiovascular: Regular Rate, Regular Rhythm GI/Abdominal Exam: Normal Bowel Sounds, Soft, Non-Tender, No Organomegaly, No Distention, No Abnormal Bruit, No Mass, Pelvis Stable Extremities: Other (There is mild pain in the left leg.) Peripheral Pulses: 1+: Radial (L), Radial (R) Skin: Warm, Dry, Intact Neurological: Cranial Nerves Intact Neuro Extensive - Mental Status: Alert, Oriented x3, Normal Mood/Affect Neuro Extensive - Motor, Sensory, Reflexes: CN II-XII Intact DTR: 1+: Bicep (L), Bicep (R) Psychiatric: Alert, Normal Affect, Normal Mood - Patient Data Lab Results Last 24 hrs: Laboratory Results - last 24 hr 04/11/19 04/11/19 Range/Units 01:33 01:33 WBC 13.1 H (4.5-11.0) K/uL RBC 4.42 (3.30-5.50) M/uL Hgb 13.3 (12.0-15.0) g/dL Hct 40.8 (36.0-48.0) % MCV 92 (80-98) fL MCH 30 (27-31) pg MCHC 33 (32-36) % Plt Count 250 (150-400) K/uL Neut % (Auto) 85 H (36-66) % Lymph % (Auto) 7 L (24-44) % [place] % (Auto) 5 (2-6) % Eos % (Auto) 3 (2-4) % Baso % (Auto) 0 (0-1) % Sodium 132 L (140-148) mmol/L Potassium 3.7 (3.6-5.2) mmol/L Chloride 101 (100-108) mmol/L Carbon Dioxide 27 (21-32) mmol/L Anion Gap 3.6 L (5.0-14.0) mmol/L BUN 10 (7-18) mg/dL Creatinine 0.8 (0.6-1.0) mg/dL Est Cr Clr Drug Dosing 83.59 mL/min Estimated GFR (MDRD) > 60 (>60) Glucose 115 H (74-106) mg/dL Calcium 9.2 (8.5-10.1) mg/dL Result Diagrams: 04/11/19 01:33 04/11/19 01:33 Problem List Initiated/Reviewed/Updated: Yes Orders Last 24hrs: Active Orders 24 hr Category Date Time Status Admission Status [Patient Status] [ADT] Routine ADT 04/11/19 02:00 Active Oxygen Therapy [RC] ASDIRECTED Care 04/11/19 02:33 Active RT Aerosol Therapy [RC] ASDIRECTED Care 04/11/19 02:33 Active Vital Signs [RC] Q4H Care 04/11/19 02:34 Active Regular Diet [DIET] Diet 04/11/19 Breakfast Active Ang Chest [CT] Routine Exams 04/11/19 10:03 Ordered VL Duplex Lwr Ext Veins Comp [US] Routine Exams 04/11/19 10:07 Ordered Albuterol [Proventil Neb Soln] Med 04/11/19 02:33 Active 2.5 mg NEB Q2H PRN Doxycycline [Vibramycin] Med 04/11/19 18:00 Active 100 mg PO Q12H Sodium Chloride 0.9% [Saline Flush] Med 04/11/19 01:22 Active 10 ml FLUSH ASDIRECTED PRN Saline Lock Insert [OM.PC] Routine Oth 04/11/19 01:22 Ordered Sequential Compression Device [OM.PC] Routine Oth 04/11/19 02:36 Ordered Code Status [Resuscitation Status] Routine Resus Stat 04/11/19 02:36 Ordered Medication Orders Albuterol (Proventil Neb Soln) 2.5 mg NEB Q2H PRN PRN Reason: Shortness of Breath Last Admin: 04/11/19 08:45 Dose: 2.5 mg Admin: 04/11/19 05:43 Dose: 2.5 mg Doxycycline Hyclate (Vibramycin) 100 mg PO Q12H OC Sodium Chloride (Saline Flush) 10 ml FLUSH ASDIRECTED PRN PRN Reason: Keep Vein Open Last Admin: 04/11/19 01:44 Dose: 10 ml Assessment/Plan Comment:: Assessment/plan: #1. Respiratory distress: The onset needs one suspicious that it could be a pulmonary embolism. I've ordered a CT of the lung with PE protocol and also a Venous Doppler flow study of the lower extremities. Her oxygen level is 90 on 2 L this is of concern when she hasn't had the problem before. #2. Hypertension: She does have history of hypertension her blood pressure is good control at the present time. Will continue with Metoprolol #3. Bipolar disorder. We'll continue with Quetiapine #4. Fibromyalgia. Continue with Tizanidine #5. Hyperlipidemia. We'll continue with rosuvastatin.
[2019-04-11] MEDS ORDERED: Albuterol 8 GM Inhaler INH PRN (12:00)
[2019-04-11] MEDS ORDERED: NAPROXEN 375 MG PO PRN (12:00)
[2019-04-11] MEDS ORDERED: Ketorolac 30 MG/ML SDV IVPUSH PRN (12:12)
[2019-04-11] MEDS ORDERED: tiZANidine 4 MG Tab PO PRN (12:20)
--- NOTE | 2019-04-11 12:55 | CT ---
Ang Chest CLINICAL HISTORY: Back pain TECHNIQUE: Thin section axial contiguous tomographic sections were taken through the chest after bolus IV iodinated contrast administration. Coronal and sagittal images were reconstructed. Auto dosage reduction and iterative reconstruction techniques employed. FINDINGS: There is some signal lies due to patient's large body habitus. Patient has scattered patchy groundglass opacifications throughout both lung dao. This is significantly reduced from prior study dating back to 2012 and 2009. No pulmonary mass is identified. There is no mediastinal mass or suspicious lymphadenopathy. There are some small hilar nodes bilaterally. These are diminished since prior study. The heart is enlarged. There is less than optimal opacification of the pulmonary arteries. No filling defects or vessel cut off is identified.. The aorta is free of aneurysm or dissection IMPRESSION: Scattered patchy groundglass opacifications throughout both lung dao. This is in part chronic and has significantly diminished from CT studies of 2012 and 2009. This may represent the recurrent the pneumonitis. Atypical infection is a consideration. No evidence of pulmonary embolus or aortic dissection Mild bilateral hilar adenopathy also reduced when compared to prior study Cardio megaly
[2019-04-11] MEDS ORDERED: LORazepam 1 MG Tab PO PRN ×2 (12:58→21:00)
[2019-04-11 13:13] VITALS: BP 148/83; PULSE 113
--- NOTE | 2019-04-11 14:03 | US ---
VL Duplex Lwr Ext Veins Comp HISTORY: No Clinical Info FINDINGS: The deep veins of the lower extremities bilaterally demonstrate normal augmentation and compressibility. No evidence for deep venous thrombosis. IMPRESSION: Normal bilateral lower extremity venous Doppler ultrasound.
[2019-04-11] MEDS ORDERED: Nicotine 21 MG/24 Hr Patch TRDERM SCH (15:30)
[2019-04-11] MEDS ORDERED: tiZANidine 4 MG Tab PO SCH (16:00)
[2019-04-11] MEDS ORDERED: Gabapentin 400 MG Cap PO SCH (16:00)
--- NOTE | 2019-04-11 17:22 | PCM.PN ---
- General Info Date of Service: 04/11/19 Functional Status: Reports: Pain Controlled - Review of Systems General: Reports: Weakness HEENT: Reports: No Symptoms Pulmonary: Reports: Shortness of Breath, Cough, Wheezing Cardiovascular: Reports: Dyspnea on Exertion Gastrointestinal: Reports: No Symptoms Genitourinary: Reports: No Symptoms Musculoskeletal: Reports: No Symptoms Skin: Reports: No Symptoms Neurological: Reports: No Symptoms Psychiatric: Reports: No Symptoms - Patient Data Vitals - Most Recent: Last Vital Signs Temp 96.9 F 04/11/19 13:10 Pulse 113 H 04/11/19 13:10 Resp 18 04/11/19 13:10 BP 148/83 H 04/11/19 13:10 Pulse Ox 92 L 04/11/19 13:10 Weight - Most Recent: 234 lb 6 oz I&O - Last 24 Hours: Intake & Output 04/11/19 04/11/19 04/11/19 06:59 14:59 22:59 Intake Total 500 400 Output Total 250 Balance 250 400 Lab Results Last 24 Hours: Laboratory Results - last 24 hr 04/11/19 04/11/19 Range/Units 01:33 01:33 WBC 13.1 H (4.5-11.0) K/uL RBC 4.42 (3.30-5.50) M/uL Hgb 13.3 (12.0-15.0) g/dL Hct 40.8 (36.0-48.0) % MCV 92 (80-98) fL MCH 30 (27-31) pg MCHC 33 (32-36) % Plt Count 250 (150-400) K/uL Neut % (Auto) 85 H (36-66) % Lymph % (Auto) 7 L (24-44) % [place] % (Auto) 5 (2-6) % Eos % (Auto) 3 (2-4) % Baso % (Auto) 0 (0-1) % Sodium 132 L (140-148) mmol/L Potassium 3.7 (3.6-5.2) mmol/L Chloride 101 (100-108) mmol/L Carbon Dioxide 27 (21-32) mmol/L Anion Gap 3.6 L (5.0-14.0) mmol/L BUN 10 (7-18) mg/dL Creatinine 0.8 (0.6-1.0) mg/dL Est Cr Clr Drug Dosing 83.59 mL/min Estimated GFR (MDRD) > 60 (>60) Glucose 115 H (74-106) mg/dL Calcium 9.2 (8.5-10.1) mg/dL Med Orders - Current: Current Medications Albuterol (Proventil Neb Soln) 2.5 mg NEB Q2H PRN PRN Reason: Shortness of Breath Last Admin: 04/11/19 12:49 Dose: 2.5 mg Albuterol (Ventolin Hfa) 0 gm INH Q4H PRN PRN Reason: Wheezing Doxycycline Hyclate (Vibramycin) 100 mg PO Q12H OC Gabapentin (Neurontin) 800 mg PO QID OC Last Admin: 04/11/19 15:06 Dose: 800 mg Ketorolac Tromethamine (Toradol) 30 mg IVPUSH Q6H PRN PRN Reason: Headache Stop: 04/16/19 12:12 Last Admin: 04/11/19 12:30 Dose: 30 mg Latanoprost (Xalatan 0.005% Ophth Soln) 0 ml EYEBOTH BEDTIME OC Lorazepam (Ativan) 0.5 - 1 mg PO BID PRN PRN Reason: ANXIETY Last Admin: 04/11/19 13:08 Dose: 0.5 mg Lurasidone HCl (Latuda) 60 mg PO DAILY [facility] Nicotine (Habitrol) 21 mg TRDERM DAILY [facility] Last Admin: 04/11/19 15:43 Dose: 21 mg Lisdexamfetamine [ Vyvanse] 70 Mg)-- Ptom 70 mg PO DAILY [facility] Quetiapine Fumarate (Seroquel) 100 mg PO BEDTIME [facility] Sodium Chloride (Saline Flush) 10 ml FLUSH ASDIRECTED PRN PRN Reason: Keep Vein Open Last Admin: 04/11/19 01:44 Dose: 10 ml Tizanidine HCl (Zanaflex) 4 mg PO QID PRN PRN Reason: MUSCLE SPASM Discontinued Medications Doxycycline Hyclate (Vibramycin) 100 mg PO ONETIME ONE Stop: 04/11/19 03:01 Last Admin: 04/11/19 03:18 Dose: 100 mg Sodium Chloride (Normal Saline) 80 mls @ 4 mls/sec IV ONETIME ONE Stop: 04/11/19 10:14 Last Admin: 04/11/19 11:41 Dose: 3.7 mls/sec Iopamidol (Isovue-370 (76%)) 100 ml IV . DIRECTED CO Stop: 04/11/19 10:16 Last Admin: 04/11/19 11:43 Dose: 100 ml Methylprednisolone Sodium Succinate (Solu-Medrol) 125 mg IVPUSH ONETIME ONE Stop: 04/11/19 01:23 Last Admin: 04/11/19 01:42 Dose: 125 mg Non-Formulary Medication (Naproxen [Naproxen]) 375 mg PO ASDIRECTED PRN PRN Reason: Pain Sodium Chloride (Saline Flush) 10 ml FLUSH ONETIME ONE Stop: 04/11/19 10:14 Last Admin: 04/11/19 11:41 Dose: 10 ml Sumatriptan Succinate (Imitrex) 6 mg SUBCUT ONETIME ONE Stop: 04/11/19 09:01 Last Admin: 04/11/19 09:23 Dose: 6 mg Tizanidine HCl (Zanaflex) 4 mg PO QID OC - Exam General: Alert, Oriented HEENT: Pupils Equal, Pupils Reactive, EOMI, Mucous Membr. Moist/[place] Neck: Supple Lungs: Decreased Breath Sounds Cardiovascular: Regular Rate, Regular Rhythm GI/Abdominal Exam: Normal Bowel Sounds, Soft, Non-Tender, No Organomegaly, No Distention, No Abnormal Bruit, No Mass, Pelvis Stable Peripheral Pulses: 1+: Brachial (L), Brachial (R) Skin: Warm, Dry, Intact Psy/Mental Status: Alert, Normal Affect, Normal Mood - Problem List Review Problem List Initiated/Reviewed/Updated: Yes - My Orders Last 24 Hours: My Active Orders 04/11/19 02:33 Oxygen Therapy [RC] ASDIRECTED RT Aerosol Therapy [RC] ASDIRECTED Albuterol [Proventil Neb Soln] 2.5 mg NEB Q2H PRN 04/11/19 02:34 Vital Signs [RC] Q4H 04/11/19 02:36 Sequential Compression Device [OM.PC] Routine Code Status [Resuscitation Status] Routine 04/11/19 12:00 Albuterol [Ventolin HFA] 0 gm INH Q4H PRN 04/11/19 12:12 Ketorolac [Toradol] 30 mg IVPUSH Q6H PRN 04/11/19 12:20 tiZANidine [Zanaflex] 4 mg PO QID PRN 04/11/19 12:58 LORazepam [Ativan] 0.5 - 1 mg PO BID PRN 04/11/19 15:30 Nicotine [Habitrol] 21 mg TRDERM DAILY 04/11/19 16:00 Gabapentin [Neurontin] 800 mg PO QID 04/11/19 17:13 Ready for Discharge [RC] PER UNIT ROUTINE 04/11/19 18:00 Doxycycline [Vibramycin] 100 mg PO Q12H 04/11/19 21:00 QUEtiapine [SEROquel] 100 mg PO BEDTIME 04/11/19 Breakfast Regular Diet [DIET] 04/12/19 09:00 Lisdexamfetamine [Vyvanse] 70 mg PO DAILY Lurasidone [Latuda] 60 mg PO DAILY 04/12/19 21:00 Latanoprost [Xalatan 0.005% Ophth Soln] 0 ml EYEBOTH BEDTIME - Plan Plan:: Assessment/plan: #1. Respiratory distress: CT of the chest with PE Protocol was negative. and the Ultrasound of legs were neg for DVT. There respiratory distress was due to bronchospasm. The x-ray showed ground glass deformities. Clinically she does not have an infection but bronchospasm. I have ordered her to get a neb machine with Albuterol which she can use up to 4 times daily as needed. #2. Hypertension: She does have history of hypertension her blood pressure is good control at the present time. Will continue with Metoprolol #3. Bipolar disorder. We'll continue with Quetiapine #4. Fibromyalgia. Continue with Tizanidine #5. Hyperlipidemia. We'll continue with rosuvastatin. I will see her in the office in one week or sooner if needed.
--- NOTE | 2019-04-11 17:28 | PCM.DCSUM1 ---
Discharge Summary - Hospital Course Free Text/Narrative:: Admitted after coming to the ER twice last night. The second time she came in by EMS. She was in respiratory distress. She responded well to nebulizer and was admitted. She gave a history of sudden onset of shortness of breath. Diagnosis: Stroke: No Modified [place] Scale: No Symptoms at All Modified [place] Scale Score: 0 - Discharge Data Discharge Date: 04/11/19 Discharge Disposition: Home, Self-Care 01 Condition: Stable - Referral to Home Health Primary Care Physician: Sarath Peck Sr, MD - Patient Summary/Data Hospital Course: After Admission when I saw her she gave a definite history of sudden onset of shortness of breath and pain in the calves of her legs. At that time she was on 2 L of oxygen and nausea levels were just above 90% there was very minimal wheezing initially when I saw her in the morning. CT of the lung was done with PE protocol which revealed no evidence of a pulmonary embolism. Ultrasound of the legs did not reveal any DVT as well. In afternoon rounds I had her walk around in the room. While laying in bed her oxygen saturation was 90% during that time she was walking went up to 94% and she felt good. She is being discharged home on the same medication that she was on including the prednisone that was started in the emergency room at her first visit. She'll also start using an albuterol nebulizer as needed. I encouraged her to stop smoking as this is part of the reason for her respiratory problem. She does need medicine to help her stop smoking she will request them. While in the hospital she was given a nicotine patch. I will see her in the office in one week or sooner if needed. - Patient Instructions Diet: Heart Healthy Diet Activity: As Tolerated - Discharge Plan *PRESCRIPTION DRUG MONITORING PROGRAM REVIEWED*: No Home Medications: Home Meds Naproxen 375 mg PO ASDIRECTED PRN 06/13/17 [History] QUEtiapine [SEROquel] 100 mg PO BEDTIME 06/13/17 [History] tiZANidine [Zanaflex] 4 mg PO QID PRN 06/13/17 [History] Albuterol [Ventolin HFA] 2 puff INH Q4H PRN 04/10/19 [History] Gabapentin [Neurontin] 800 mg PO QID 04/10/19 [History] LORazepam 0.5 - 1 mg PO BID PRN 04/10/19 [History] Latanoprost 1 drop TOP DAILY 04/10/19 [History] Lisdexamfetamine [Vyvanse] 70 mg PO DAILY 04/10/19 [History] Lurasidone [Latuda] 60 mg PO DAILY 04/10/19 [History] Albuterol [Proventil Neb Soln] 2.5 mg NEB Q2H PRN neb 04/11/19 [Rx] Patient Handouts: How to Use a Nebulizer, Adult, Albuterol inhalation solution Referrals: PCP,None [Ordering Only Provider] - (Make appointment with Dr Peck in 1 week for follow up.) - Discharge Summary/Plan Comment DC Time >30 min.: No Discharge Summary/Plan Comment: Assessment/plan: #1. Respiratory distress: CT of the chest with PE Protocol was negative. and the Ultrasound of legs were neg for DVT. There respiratory distress was due to bronchospasm. The x-ray showed ground glass deformities. Clinically she does not have an infection but bronchospasm. I have ordered her to get a neb machine with Albuterol which she can use up to 4 times daily as needed. #2. Hypertension: She does have history of hypertension her blood pressure is good control at the present time. Will continue with Metoprolol #3. Bipolar disorder. We'll continue with Quetiapine #4. Fibromyalgia. Continue with Tizanidine #5. Hyperlipidemia. We'll continue with rosuvastatin. I will see her in the office in one week or sooner if needed. - General Info Date of Service: 04/11/19 Functional Status: Reports: Pain Controlled - Review of Systems General: Reports: Weakness HEENT: Reports: No Symptoms Pulmonary: Reports: No Symptoms Cardiovascular: Reports: No Symptoms Gastrointestinal: Reports: No Symptoms Genitourinary: Reports: No Symptoms Musculoskeletal: Reports: No Symptoms Skin: Reports: No Symptoms Neurological: Reports: No Symptoms Psychiatric: Reports: No Symptoms - Patient Data Vitals - Most Recent: Last Vital Signs Temp 96.9 F 04/11/19 13:10 Pulse 113 H 04/11/19 13:10 Resp 18 04/11/19 13:10 BP 148/83 H 04/11/19 13:10 Pulse Ox 92 L 04/11/19 13:10 Weight - Most Recent: 234 lb 6 oz I&O - Last 24 hours: Intake & Output 04/11/19 04/11/19 04/11/19 06:59 14:59 22:59 Intake Total 500 400 Output Total 250 Balance 250 400 Lab Results - Last 24 hrs: Laboratory Results - last 24 hr 04/11/19 04/11/19 Range/Units 01:33 01:33 WBC 13.1 H (4.5-11.0) K/uL RBC 4.42 (3.30-5.50) M/uL Hgb 13.3 (12.0-15.0) g/dL Hct 40.8 (36.0-48.0) % MCV 92 (80-98) fL MCH 30 (27-31) pg MCHC 33 (32-36) % Plt Count 250 (150-400) K/uL Neut % (Auto) 85 H (36-66) % Lymph % (Auto) 7 L (24-44) % [place] % (Auto) 5 (2-6) % Eos % (Auto) 3 (2-4) % Baso % (Auto) 0 (0-1) % Sodium 132 L (140-148) mmol/L Potassium 3.7 (3.6-5.2) mmol/L Chloride 101 (100-108) mmol/L Carbon Dioxide 27 (21-32) mmol/L Anion Gap 3.6 L (5.0-14.0) mmol/L BUN 10 (7-18) mg/dL Creatinine 0.8 (0.6-1.0) mg/dL Est Cr Clr Drug Dosing 83.59 mL/min Estimated GFR (MDRD) > 60 (>60) Glucose 115 H (74-106) mg/dL Calcium 9.2 (8.5-10.1) mg/dL Med Orders - Current: Current Medications Albuterol (Proventil Neb Soln) 2.5 mg NEB Q2H PRN PRN Reason: Shortness of Breath Last Admin: 04/11/19 12:49 Dose: 2.5 mg Albuterol (Ventolin Hfa) 0 gm INH Q4H PRN PRN Reason: Wheezing Doxycycline Hyclate (Vibramycin) 100 mg PO Q12H OC Gabapentin (Neurontin) 800 mg PO QID OC Last Admin: 04/11/19 15:06 Dose: 800 mg Ketorolac Tromethamine (Toradol) 30 mg IVPUSH Q6H PRN PRN Reason: Headache Stop: 04/16/19 12:12 Last Admin: 04/11/19 12:30 Dose: 30 mg Latanoprost (Xalatan 0.005% Ophth Soln) 0 ml EYEBOTH BEDTIME [facility] Lorazepam (Ativan) 0.5 - 1 mg PO BID PRN PRN Reason: ANXIETY Last Admin: 04/11/19 13:08 Dose: 0.5 mg Lurasidone HCl (Latuda) 60 mg PO DAILY [facility] Nicotine (Habitrol) 21 mg TRDERM DAILY [facility] Last Admin: 04/11/19 15:43 Dose: 21 mg Lisdexamfetamine [ Vyvanse] 70 Mg)-- Ptom 70 mg PO DAILY [facility] Quetiapine Fumarate (Seroquel) 100 mg PO BEDTIME [facility] Sodium Chloride (Saline Flush) 10 ml FLUSH ASDIRECTED PRN PRN Reason: Keep Vein Open Last Admin: 04/11/19 01:44 Dose: 10 ml Tizanidine HCl (Zanaflex) 4 mg PO QID PRN PRN Reason: MUSCLE SPASM Discontinued Medications Doxycycline Hyclate (Vibramycin) 100 mg PO ONETIME ONE Stop: 04/11/19 03:01 Last Admin: 04/11/19 03:18 Dose: 100 mg Sodium Chloride (Normal Saline) 80 mls @ 4 mls/sec IV ONETIME ONE Stop: 04/11/19 10:14 Last Admin: 04/11/19 11:41 Dose: 3.7 mls/sec Iopamidol (Isovue-370 (76%)) 100 ml IV . DIRECTED OC Stop: 04/11/19 10:16 Last Admin: 04/11/19 11:43 Dose: 100 ml Methylprednisolone Sodium Succinate (Solu-Medrol) 125 mg IVPUSH ONETIME ONE Stop: 04/11/19 01:23 Last Admin: 04/11/19 01:42 Dose: 125 mg Non-Formulary Medication (Naproxen [Naproxen]) 375 mg PO ASDIRECTED PRN PRN Reason: Pain Sodium Chloride (Saline Flush) 10 ml FLUSH ONETIME ONE Stop: 04/11/19 10:14 Last Admin: 04/11/19 11:41 Dose: 10 ml Sumatriptan Succinate (Imitrex) 6 mg SUBCUT ONETIME ONE Stop: 04/11/19 09:01 Last Admin: 04/11/19 09:23 Dose: 6 mg Tizanidine HCl (Zanaflex) 4 mg PO QID OC - Exam General: Reports: Alert, Oriented HEENT: Reports: Pupils Equal, Pupils Reactive, EOMI, Mucous Membr. Moist/[place] Neck: Reports: Supple Lungs: Reports: Other (very mild rubs in her chest) Cardiovascular: Reports: Regular Rate, Regular Rhythm GI/Abdominal Exam: Normal Bowel Sounds, Soft, Non-Tender, No Organomegaly, No Distention, No Abnormal Bruit, No Mass, Pelvis Stable Extremities: Normal Inspection, Normal Range of Motion, Non-Tender, No Pedal Edema, Normal Capillary Refill Skin: Reports: Warm, Dry, Intact Neurological: Reports: No New Focal Deficit Psy/Mental Status: Reports: Alert, Normal Affect, Normal Mood
[2019-04-11] MEDS ORDERED: Doxycycline 100 MG Cap PO SCH (18:00)
[2019-04-11] MEDS ORDERED: QUEtiapine 100 MG Tab PO SCH (21:00)
[2019-04-11] MEDS ORDERED: QUEtiapine 25 MG Tab PO SCH (21:00)
[2019-04-12] MEDS ORDERED: Lurasidone 40 MG Tab PO SCH (09:00)
[2019-04-12] MEDS ORDERED: LISDEXAMFETAMINE 70 MG PO SCH (09:00)
[2019-04-12] MEDS ORDERED: Latanoprost 0.005% Ophth Soln 2.5 ML Bottle EYEBOTH SCH (21:00)
== END 2019-04-11 17:45 | disposition home or self-care (01) | DRG 203 ==
LOC: JP.ED 00:38 → JP.MS 02:00
PROVIDERS: ADMIT Internal Medicine; ATTEND Internal Medicine
DX: J98.01 Acute bronchospasm (principal); I10 Essential (primary) hypertension; F31.9 Bipolar disorder, unspecified; M79.7 Fibromyalgia; E78.5 Hyperlipidemia, unspecified; H54.7 Unspecified visual loss; M19.90 Unspecified osteoarthritis, unspecified site; G89.29 Other chronic pain; K52.9 Noninfective gastroenteritis and colitis, unspecified; M54.9 Dorsalgia, unspecified; F41.9 Anxiety disorder, unspecified; E66.9 Obesity, unspecified; G43.909 Migraine, unspecified, not intractable, without status migrainosus; F17.210 Nicotine dependence, cigarettes, uncomplicated; Z87.01 Personal history of pneumonia (recurrent); Z79.899 Other long term (current) drug therapy; Z88.0 Allergy status to penicillin; Z68.37 Body mass index [BMI] 37.0-37.9, adult
CPT/HCPCS: 36415; 71046; 71275; 71275-26; 80048; 85025; 93970; 93970-26; 94640; 96374; 99284-25; A9270-GY; J1885; J2930; J3030; J7030; Q9967